=== PATIENT | female | born 2000 | race Caucasian/White ===

== ENCOUNTER 2021-04-19 17:21 | Emergency (ER) | payer MEDICAID, SELFPAY ==
--- NOTE | ~2021-04-19 | XR_ITS ---
EXAMINATION: XR ANKLE, LEFT CLINICAL INFORMATION: Fall COMPARISON: None TECHNIQUE: AP, lateral, and mortise views of the left ankle. FINDINGS: The bones and soft tissues are normal. No fracture. Alignment is anatomic. Joint spaces are maintained. No joint effusion. XR/XR ankle LT min 3V IMPRESSION: No fracture or dislocation.
[2021-04-19 17:53] VITALS: BP 120/63; PULSE 71; RESP 18; TEMP 37.2; O2SAT 100; BMI 35.6
--- NOTE | 2021-04-19 19:51 | ED_ITS ---
HPI - Extremity Injury (Lower) General Chief Complaint: Extremity Injury, Lower Stated Complaint: Fall @ work Time Seen by Provider: 04/19/21 19:49 Source: patient Mode of arrival: ambulatory Limitations: no limitations History of Present Illness HPI Narrative: This is a 21-year-old female who was at work when she is stepped off a curb that she had not noticed and twisted her left ankle. She is not sure exactly how twisted but she felt a pop and has pain in her lateral ankle. The patient is able to ambulate, with pain. Pain is moderately severe, achy. The patient denies any numbness or tingling in her foot or toes. Related Data Allergies Allergy/AdvReac Type Severity Reaction Status Date / Time No Known Allergies Allergy Unverified 02/15/20 19:37 [No Known Allergies*] Review of Systems Constitutional: Constitutional: Denies fever(s) Neurologic: Denies Sensory deficit (Neuro) [facility] Past Medical History Medical History (Updated 04/20/21 @ 00:02 by Wilfredo Majano) Anxiety Depressed Social History Social History Advance Directives: No Advance Directives Information Provided: No Physical Exam Vital Signs: Vital Signs: Last Vital Signs Temp 98.9 F 04/19/21 17:53 Pulse 71 04/19/21 17:53 Resp 18 04/19/21 17:53 BP 120/63 04/19/21 17:53 Pulse Ox 100 04/19/21 17:53 Body Mass Index 35.6 HENMT: Head: Yes normal to inspection Eyes: General: appearance normal, both eyes and all related structures Resp: Effort & Inspection: normal respiratory effort Auscultation: clear to auscultation bilaterally Cardio: Rate: regular rate Rhythm: regular rhythm Heart sounds: S1 normal heart sound present and S2 normal heart sound present Neuro: Sensory Exam: No Sensory deficit (Neuro) Extrem: Other: Left lateral ankle with mild swelling. Tenderness especially to the anterior talofibular ligament. No tenderness to the calcaneus or to the base of the 5th metatarsal. Foot is neurovascular intact. No tenderness the medial malleolus MDM - Extremity Injury (Lower) MDM Narrative Medical decision making narrative: Patient with a mechanism for ankle sprain, has tenderness localized to the lateral malleolus, mild swelling, no foot tenderness, x-ray negative. Recommend aircast or similar immobilization, limited weight-bearing, ibuprofen, ice pack Imaging Data Left ankle x-ray: Radiologist's impression: No acute pathology Discharge Plan Discharge Clinical Impression: Ankle sprain and strain Patient Disposition: Home, Self-Care Instructions: Ankle Sprain (ED), Cold Compress or Soak (ED) Additional Instructions: Use the splint while up and around for the next 5-7 days. Use ibuprofen for pain, 600 mg every 6 hours with food. Use an ice pack off and on for the next 24 hours. Follow-up with orthopedics if you still have significant pain in 5-7 days Referrals: Kyler Zuniga MD [Physician] - 1 week Stand Alone Forms: Work/School Release Interventions: ED Discharge Assessment Last Done: 04/19/21 20:50 Discharge Date/Time: 04/19/21 20:51
[2021-04-19] MEDS: Ibuprofen 600 MG TABLET PO (20:38)
== END 2021-04-19 20:51 | disposition home or self-care (01) ==
PROVIDERS: Emergency Provider Emergency Medicine
DX: S93.402A Sprain of unspecified ligament of left ankle, initial encounter (principal); S96.912A Strain of unspecified muscle and tendon at ankle and foot level, left foot, initial encounter; X50.1XXA Overexertion from prolonged static or awkward postures, initial encounter; Y93.01 Activity, walking, marching and hiking; Y92.89 Other specified places as the place of occurrence of the external cause; Y99.0 Civilian activity done for income or pay
CPT/HCPCS: 73610; 99283; 99284

== ENCOUNTER 2021-05-15 17:23 | Emergency (ER) | payer MEDICAID, SELFPAY ==
[2021-05-15 17:37] VITALS: BP 143/70; PULSE 81; RESP 20; TEMP 36.4; O2SAT 99; BMI 34.0
[2021-05-15 17:59] LABS: MANUAL DIFF FLAG NO
[2021-05-15 18:09] LABS: Basophils Absolute Auto 0.1 X10*3/uL (0.0-0.2); Basophils Percent Auto 0.5 % (0-2); Eosinophils Absolute Auto 0.2 X10*3/uL (0.0-0.4); Eosinophils Percent Auto 1.6 % (0-4); Hematocrit 40.7 % (37.0-47.0); Imm Gran Abs Auto 0.02 X10*3/uL (0.00-0.03); Imm Gran Pct Auto 0.2 % (0.0-0.4); Lymphocytes Percent Auto 21.5 % (20-40); Mean Corpuscular HGB Conc 31.9 g/dl (31.0-35.0); Mean Corpuscular Hemoglobin 26.6 pg (27.0-33.0); Mean Corpuscular Volume 83.4 fL (80.0-98.0); Mean Platelet Volume 10.2 fL (9.4-12.3); Monocytes Absolute Auto 0.7 X10*3/uL (0.1-1.2); Neutrophils Absolute Auto 6.5 x10*3/uL (2.0-8.3); Neutrophils Percent Auto 69.2 % (45-73); Platelet Count 246 X10*3/uL (160-400); Red Blood Count 4.88 X10*6/uL (4.20-5.50); Red Cell Distribution Width 12.9 % (11.0-16.0); White Blood Count 9.5 X10*3/uL (4.8-10.8)
[2021-05-15 18:15] LABS: Alanine Aminotransferase 22 U/L (0-31); Albumin Level 4.4 g/dL (3.5-5.0); Alkaline Phosphatase 58 U/L (39-117); Anion Gap 11 (12-20); Aspartate Amino Transferase 20 U/L (5-31); Bilirubin Total 0.3 mg/dL (0.0-1.0); Blood Urea Nitrogen 15 mg/dL (9-16); Calcium 9.5 mg/dL (8.4-10.2); Carbon Dioxide 28 mmol/L (22-29); Chloride 105 mmol/L (96-108); Creatinine Clr Calc Pharmacy 122.5; Estimated Glomerular Filt Rate > 60; Glucose Random 83 mg/dL (60-115); Potassium 4.6 mmol/L (3.3-5.1); Sodium 139 mmol/L (135-145); Total Protein 7.4 g/dL (6.5-8.0)
[2021-05-15 18:21] LABS: HCG Quantitative 153 mIU/mL
--- NOTE | 2021-05-15 23:00 | ED.FEMALEGU ---
HPI - Female Genitourinary General Chief complaint: Urogenital-Female Stated complaint: abd pain Time Seen by Provider: 05/15/21 22:41 Source: patient Mode of arrival: ambulatory Limitations: no limitations History of Present Illness HPI Narrative: 21-year-old female who presents emergency department for evaluation and bleeding. The patient states that Nexplanon implant removed on 04/02/2021. She states that prior to having the implant removed she had irregular menstrual periods. Her last menstrual period was 04/03/2021. The patient was expecting to have a menstrual period on 05/03/2021 but she has been approximately 12 days late. She states she took 3 home tests which were positive . She saw her PCP at [facility] and had a quantitative beta HCG of 131. She states that last night she developed cramping similar to a menstrual cramp. She states that the cramping is intermittent, mild to moderate intensity and located across her mid abdomen. She states that today she started to bleed similar to a menstrual period. She states that she used pads and she had to change her pad 3 times but did not soaked through these pads. She states that she was concerned about the amount of bleeding especially since she was therefore she came to the emergency department for evaluation. She denied fever, chills, lightheadedness, dizziness, nausea, vomiting, frequency, urgency or dysuria. The patient has never been . Related Data Allergies Allergy/AdvReac Type Severity Reaction Status Date / Time No Known Allergies Allergy Unverified 02/15/20 19:37 [No Known Allergies*] Review of Systems Review of Systems: Yes all other systems are reviewed and are negative [facility] Past Medical History [facility] Narrative: Past medical history: Arachnoid cyst, syncope. Past surgical history: None. Social history: She denies tobacco, alcohol and she occasionally uses marijuana. Medical History (Updated 05/15/21 @ 23:39 by Moises Arriaza MD) Anxiety Depressed Social History Social History Advance Directives: No Physical Exam Vital Signs: Vital Signs: Last Vital Signs Temp 97.6 F 05/15/21 17:37 Pulse 81 05/15/21 17:37 Resp 20 05/15/21 17:37 BP 143/70 H 05/15/21 17:37 Pulse Ox 99 05/15/21 17:37 BMI result Body Mass Index 34.0 Const: General: cooperative and no acute distress Orientation/consciousness: oriented to person and oriented to place Limitations: no limitations HENMT: Head: Yes normal to inspection, Yes normocephalic and Yes atraumatic Ears: external ears normal General nose exam: Normal external nose present Face and sinus: Yes normal facial exam Mouth: Normal oral and palatal mucosa present Throat: Yes posterior oropharynx normal Eyes: General: appearance normal, both eyes and all related structures Pupils: Equal, round and reactive pupils present Neck: Neck: Yes normal visual inspection, Yes no lymphadenopathy, Yes trachea midline and Yes supple Chest: Chest palpation & inspection: normal inspection of the chest and normal palpation of entire chest wall Resp: Effort & Inspection: normal respiratory effort and able to speak in complete sentences Auscultation: clear to auscultation bilaterally Cardio: Rate: regular rate Rhythm: regular rhythm Heart sounds: S1 normal heart sound present, S2 normal heart sound present and no murmurs GI: Inspection: Yes normal to inspection Palpation (GI): Soft to palpation, Tenderness to palpation present (GI) (Mild RLQ, suprapubic and LLQ tenderness) and no guarding Auscultation: normal bowel sounds : General: Yes no CVA tenderness Back/Spine/Pelvis: Back: no CVA tenderness Skin: General skin exam: no rashes or lesions noted Neuro: General: oriented to person and oriented to place Cranial nerves: Yes CN's II-XII intact bilaterally and Yes Equal, round and reactive pupils present Cognition (Neuro): normal cognition Motor exam (neuro): 5/5 motor strength present throughout Extrem: General: Yes normal to inspection Psych: Appearance: grossly normal Speech and movement: Normal speech and movement present Affect: normal affect Attitude: cooperative Thought process: Normal thought process present Thought content: Normal thought content present Course Course Course Narrative: 21-year-old nulliparous female patient who presents emergency department for evaluation abdominal pain vaginal bleeding and positive test. The patient used a Nexplanon implant for control and this was removed on 04/02/2021 and she had a menstrual period on 04/03/2021. She is approximately 12 days late for her next menstrual. She had 3 positive home test and had a quantitative beta-hCG of 131 done by her PCP today. The patient had menstrual cramping last night and had vaginal bleeding today which she states is similar to her menses and she has used 3 pads which is not soaked through. Initial vital signs were normal. Physical examination revealed lower abdominal tenderness which was mild. Laboratory evaluation revealed a normal CBC with a H&H of 13 and 40.7. Patient's comprehensive metabolic panel was normal. Quantitative beta-hCG was 153. I did discuss these results with the patient, possible that she may be early on in her or that she may have had a miscarriage. I did order and ABO on the patient to determine if she needs RhoGAM. At this time I do not think that she has and topic and I did discuss this with her. 2335: Patient's blood type is A positive. The patient will be discharged home with printed instructions on possible miscarriage. She was advised to follow-up with her OBGYN in 4-7 days for repeat quantitative beta-hCG and possible ultrasound as an outpatient. MDM - Female Genitourinary Lab Data Result diagrams: 05/15/21 17:54 05/15/21 17:54 Labs: Lab Results 05/15/21 05/15/21 05/15/21 Range/Units 17:54 17:54 17:54 WBC 9.5 (4.8-10.8) X10*3/uL RBC 4.88 (4.20-5.50) X10*6/uL Hgb 13.0 (12.0-16.0) g/dl Hct 40.7 (37.0-47.0) % MCV 83.4 (80.0-98.0) fL MCH 26.6 L (27.0-33.0) pg MCHC 31.9 (31.0-35.0) g/dl RDW 12.9 (11.0-16.0) % Plt Count 246 (160-400) X10*3/uL MPV 10.2 (9.4-12.3) fL Immature Gran % (Auto) 0.2 (0.0-0.4) % Neut % (Auto) 69.2 (45-73) % Lymph % (Auto) 21.5 (20-40) % [place] % (Auto) 7.0 (2-11) % Eos % (Auto) 1.6 (0-4) % Baso % (Auto) 0.5 (0-2) % Lymph # (Auto) 2.0 (1.2-4.9) X10*3/uL [place] # (Auto) 0.7 (0.1-1.2) X10*3/uL Eos # (Auto) 0.2 (0.0-0.4) X10*3/uL Baso # (Auto) 0.1 (0.0-0.2) X10*3/uL Abs Immat Gran (auto) 0.02 (0.00-0.03) X10*3/uL Absolute Neuts (auto) 6.5 (2.0-8.3) x10*3/uL Absolute Nucleated RBC 0.000 (0.0-0.012) X10*3/uL Nucleated RBC % (auto) 0.0 (0.0-0.2) /100WBC Sodium 139 (135-145) mmol/L Potassium 4.6 (3.3-5.1) mmol/L Chloride 105 (96-108) mmol/L Carbon Dioxide 28 (22-29) mmol/L Anion Gap 11 L (12-20) BUN 15 (9-16) mg/dL Creatinine 0.84 (0.5-1.4) mg/dL Estim Creat Clear Calc 122.5 Estimated GFR > 60 Random Glucose 83 (60-115) mg/dL Calcium 9.5 (8.4-10.2) mg/dL Total Bilirubin 0.3 (0.0-1.0) mg/dL AST 20 (5-31) U/L ALT 22 (0-31) U/L Alkaline Phosphatase 58 (39-117) U/L Total Protein 7.4 (6.5-8.0) g/dL Albumin 4.4 (3.5-5.0) g/dL Beta HCG, Quant 153 mIU/mL Blood Type A Positive Discharge Plan Discharge Clinical Impression: Bleeding in early Patient Disposition: Home, Self-Care Instructions: Threatened Miscarriage (ED) Additional Instructions: You had the following blood test: Complete blood count ( CBC) : WBC was 9.5, hemoglobin and hematocrit were 13 and 40.7, platelet count was 246. These were all normal. Comprehensive metabolic panel (CMP): Normal Quantitative beta-hCG (blood test) was 153. This would be low if your 6 weeks . This number usually doubles in 4-7 days if you are . You will need to follow-up with your OBGYN to get a repeat quantitative beta-hCG in 4-7 days and possibly an ultrasound as an outpatient. ABO (blood type): A positive. You do not need the special medicine RhoGAM. Please follow the threatened miscarriage instructions and return to the emergency department if you symptoms get worse or if you develop any new symptoms that are concerning to you.
[2021-05-15 23:54] VITALS: BP 101/73; PULSE 80; RESP 16; TEMP 36.9; O2SAT 100
--- NOTE | 2021-05-16 00:03 | PC.NURSE ---
pt a&o, no sob or chest pain, Reviewed labs and education on increase bleeding. Education on discharge instruction and follow up appointment.
== END 2021-05-16 00:05 | disposition home or self-care (01) ==
PROVIDERS: Emergency Provider Emergency Medicine Emergency Medical Services
DX: O20.9 Hemorrhage in early pregnancy, unspecified (principal); Z3A.01 Less than 8 weeks gestation of pregnancy
CPT/HCPCS: 36415; 80053; 84702; 85025; 86900; 86901; 99283; 99284

== ENCOUNTER 2021-05-22 09:50 | Outpatient (REF) | payer MEDICAID, SELFPAY ==
[2021-05-22 12:06] LABS: HCG Quantitative 12 mIU/mL
== END 2021-05-22 09:51 | disposition home or self-care (01) ==
LOC: HO.HMGCLDS 09:50
PROVIDERS: PCP Registered Nurse; Visit Provider Registered Nurse
DX: N91.2 Amenorrhea, unspecified (principal)
CPT/HCPCS: 36415; 84702

== ENCOUNTER 2021-06-05 11:03 | Outpatient (REF) | payer MEDICAID, SELFPAY ==
[2021-06-05 14:06] LABS: Hematocrit 42.5 % (37.0-47.0); Hemoglobin 13.5 g/dl (12.0-16.0); Mean Corpuscular HGB Conc 31.8 g/dl (31.0-35.0); Mean Corpuscular Hemoglobin 26.4 pg (27.0-33.0); Mean Platelet Volume 10.6 fL (9.4-12.3); Platelet Count 239 X10*3/uL (160-400); Red Blood Count 5.12 X10*6/uL (4.20-5.50); Red Cell Distribution Width 12.8 % (11.0-16.0); White Blood Count 7.4 X10*3/uL (4.8-10.8)
[2021-06-05 14:28] LABS: HCG Quantitative < 2 mIU/mL
== END 2021-06-05 11:04 | disposition home or self-care (01) ==
LOC: HO.HMGCLDS 11:03
PROVIDERS: PCP Registered Nurse; Visit Provider Registered Nurse
DX: N91.2 Amenorrhea, unspecified (principal)
CPT/HCPCS: 36415; 84702; 85027

== ENCOUNTER 2021-07-18 13:41 | Outpatient (REF) | payer MEDICAID, SELFPAY ==
[2021-07-18 17:06] LABS: HCG Quantitative 16960 mIU/mL
== END 2021-07-18 13:42 | disposition home or self-care (01) ==
LOC: HO.HMGCLDS 13:41
PROVIDERS: Visit Provider Registered Nurse
DX: N91.2 Amenorrhea, unspecified (principal)
CPT/HCPCS: 36415; 84702

== ENCOUNTER 2021-07-31 14:07 | Emergency (ER) | payer MEDICAID, SELFPAY ==
[2021-07-31 14:10] VITALS: BP 140/64; PULSE 93; RESP 18; TEMP 36.8; O2SAT 98; BMI 35.0
[2021-07-31 14:39] LABS: Appearance Urine HAZY; Color Urine YELLOW; Glucose Urine UA NEG (NEG); Leukocyte Esterase Urine NEG (NEG); Nitrite Urine NEG (NEG); Urine Blood NEG (NEG); Urine Ketones NEG (NEG); Urine Protein TRACE MG/DL (NEG-TRACE)
--- NOTE | 2021-07-31 16:01 | ED_ITS ---
HPI - Nausea/Vomiting/Diarrhea General Chief complaint: Nausea/Vomiting/Diarrhea Stated complaint: SEVERE NAUSEA 6 WK PREG Time Seen by Provider: 07/31/21 15:34 Source: patient Mode of arrival: ambulatory Limitations: no limitations History of Present Illness HPI Narrative: 21-year-old female , LMP 06/12/2021, 7 weeks by dates who presents emergency department for evaluation of constant nausea, intermittent vomiting, cough, constipation and weight loss. The patient states that she has had a telemedicine visit with an OBGYN and had a positive home test and confirmatory blood test . She states that over the past 1-2 weeks she has had constant nausea to the point where she is unable to eat. She states that she vomits once or twice a day. She states that she has lost approximately 10 lb over the past week. She denied fever, chills, chest pain, shortness of breath, dyspnea on exertion, abdominal pain, frequency, urgency, dysuria. She states that she developed a nonproductive cough today and several times which a cough this caused her to vomit. She states that she has been constipated but she did have a bowel movement yesterday. Her provider did start her on Zofran but this is not been helping with her nausea or vomiting. The patient states that she had a miscarriage in April of 2021 and was here at this emergency department. At that time her blood type was A positive. Patient has received the Moderna 3 shot vaccine for COVID-19. elicited complaint: nausea and vomiting Pertinent past history: other (Seven weeks by last menstrual period) Onset (ago): week(s) (2) Description of vomiting: food contents Associated nausea: Yes (Constant) Associated abdominal pain: No Exacerbating factors: eating Relieving factors: none Associated symptoms: cough (Nonproductive x1 day) Related Data Previous Rx's Medication Instructions Recorded metoclopramide HCl 10 mg tablet 10 mg PO Q6H PRN #20 tab 07/31/21 (Reglan) Allergies Allergy/AdvReac Type Severity Reaction Status Date / Time No Known Allergies Allergy Verified 07/31/21 14:10 [No Known Allergies*] Review of Systems Review of Systems: Yes all other systems are reviewed and are negative Gastrointestinal: Gastrointestinal: Reports nausea (Constant) PMFSH Past Medical History PMF Narrative: Past medical history: Anxiety, depression, asthma, arachnoid cyst, Chiari malformation. Past surgical history: None. Social history: She denies t obacco, alcohol and drug use. Medical History (Updated 07/31/21 @ 18:18 by Moises Arriaza MD) Anxiety Depressed Social History Social History Patient Tobacco Use Status: Never used Tobacco Use of substances other than those prescribed or required for medical reasons: No Advance Directives: No Advance Directives Information Provided: No Patient : Yes Physical Exam Vital Signs: Vital Signs: Last Vital Signs Temp 98.3 F 07/31/21 14:10 Pulse 92 07/31/21 16:47 Resp 14 07/31/21 16:47 BP 140/67 H 07/31/21 16:47 Pulse Ox 100 07/31/21 16:47 BMI result Body Mass Index 35.0 Const: General: cooperative and no acute distress Orientation/consciousness: oriented to person and oriented to place Limitations: no limitations HENMT: Head: Yes normal to inspection, Yes normocephalic and Yes atraumatic Ears: external ears normal General nose exam: Normal external nose present Face and sinus: Yes normal facial exam Mouth: Normal oral and palatal mucosa present Throat: Yes posterior oropharynx normal Eyes: General: appearance normal, both eyes and all related structures Pupils: Equal, round and reactive pupils present Neck: Neck: Yes normal visual inspection, Yes no lymphadenopathy, Yes trachea midline and Yes supple Chest: Chest palpation & inspection: normal inspection of the chest and normal palpation of entire chest wall Resp: Effort & Inspection: normal respiratory effort and able to speak in complete sentences Auscultation: clear to auscultation bilaterally Cardio: Rate: regular rate Rhythm: regular rhythm Heart sounds: S1 normal heart sound present, S2 normal heart sound present and no murmurs GI: Inspection: Yes normal to inspection Palpation (GI): Soft to palpation, nontender and no guarding Auscultation: normal bowel sounds : General: Yes no CVA tenderness Back/Spine/Pelvis: Back: no CVA tenderness Skin: General skin exam: no rashes or lesions noted Neuro: General: oriented to person and oriented to place Cranial nerves: Yes CN's II-XII intact bilaterally and Yes Equal, round and reactive pupils present Cognition (Neuro): normal cognition Motor exam (neuro): 5/5 motor strength present throughout Extrem: General: Yes normal to inspection Psych: Appearance: grossly normal Speech and movement: Normal speech and movement present Affect: normal affect Attitude: cooperative Thought process: Normal thought process present Thought content: Normal thought content present Course Course Course Narrative: 21-year-old female , 7 weeks based on LMP, positive home test and confirmatory test by PCP, who presents emergency department for evaluation of nausea times 1-2 weeks with lack of appetite, 1-2 episodes of vomiting per day, 10 lb weight loss and nonproductive cough which began today. The patient's vital signs revealed blood pressure of 140/64 otherwise were unremarkable. Physical examination was unremarkable with no abdominal tenderness. I ordered a CBC, CMP, lipase, urinalysis, quantitative beta-hCG. P atient will be tested for COVID-19. Patient was ordered to get normal saline x1 L, [id number] mg IV and Benadryl 50 mg IV. 1810: Laboratory evaluation: Patient's CBC, CMP were unremarkable except for an elevated alk-phos of 35. Patient's quantitative beta hCG today was 80,485, this was compared to a beta-hCG of 16,960 on 07/18/2021 which is reassuring. Urinalysis was negative. COVID-19 test was negative. Patient did get significant improvement with the above medications. She has almost completed her L of normal saline and she will be discharged after completion. Patient was started on regular and Benadryl every 6-8 hours as needed for nausea and vomiting. She was advised to follow-up with her OBGYN for re-evaluation and for further management of her symptoms. At this time, she is having no abdominal pain or tenderness I do not think that she needs an OB ultrasound and this could be obtained as an outpatient. MDM - Nausea/Vomiting/Diarrhea Lab Data Result diagrams: 07/31/21 16:38 07/31/21 16:38 Labs: Lab Results 07/31/21 07/31/21 07/31/21 Range/Units 14:33 16:38 16:38 WBC 9.3 (4.8-10.8) X10*3/uL RBC 5.21 (4.20-5.50) X10*6/uL Hgb 14.0 (12.0-16.0) g/dl Hct 42.8 (37.0-47.0) % MCV 82.1 (80.0-98.0) fL MCH 26.9 L (27.0-33.0) pg MCHC 32.7 (31.0-35.0) g/dl RDW 12.5 (11.0-16.0) % Plt Count 217 (160-400) X10*3/uL MPV 10.1 (9.4-12.3) fL Immature Gran % (Auto) 0.5 H (0.0-0.4) % Neut % (Auto) 84.8 H (45-73) % Lymph % (Auto) 4.8 L (20-40) % [place] % (Auto) 9.4 (2-11) % Eos % (Auto) 0.1 (0-4) % Baso % (Auto) 0.4 (0-2) % Lymph # (Auto) 0.5 L (1.2-4.9) X10*3/uL [place] # (Auto) 0.9 (0.1-1.2) X10*3/uL Eos # (Auto) 0.0 (0.0-0.4) X10*3/uL Baso # (Auto) 0.0 (0.0-0.2) X10*3/uL Abs Immat Gran (auto) 0.05 H (0.00-0.03) X10*3/uL Absolute Neuts (auto) 7.9 (2.0-8.3) x10*3/uL Absolute Nucleated RBC 0.000 (0.0-0.012) X10*3/uL Nucleated RBC % (auto) 0.0 (0.0-0.2) /100WBC Sodium 136 (135-145) mmol/L Potassium 4.6 (3.3-5.1) mmol/L Chloride 104 (96-108) mmol/L Carbon Dioxide 23 (22-29) mmol/L Anion Gap 14 (12-20) BUN 11 (9-16) mg/dL Creatinine 0.79 (0.5-1.4) mg/dL Estim Creat Clear Calc 123.1 Estimated GFR > 60 Random Glucose 78 (60-115) mg/dL Calcium 9.6 (8.4-10.2) mg/dL Total Bilirubin 0.5 (0.0-1.0) mg/dL AST 18 (5-31) U/L ALT 35 H (0-31) U/L Alkaline Phosphatase 56 (39-117) U/L Total Protein 7.4 (6.5-8.0) g/dL Albumin 4.3 (3.5-5.0) g/dL Lipase 15 (8-78) U/L Beta HCG, Quant 36043 mIU/mL Urine Color YELLOW Urine Appearance HAZY Urine pH 7.0 (5.0-8.0) Ur Specific [place] 1.010 (1.005-1.025) Urine Protein TRACE (NEG-TRACE) MG/DL Urine Glucose (UA) NEG (NEG) MG/DL Urine Ketones NEG (NEG) MG/DL Urine Blood NEG (NEG) Urine Nitrite NEG (NEG) Ur Leukocyte Esterase NEG (NEG) COVID-19 (TIARA) (Negative) COVID-19 Clin Com 07/31/21 Range/Units 16:38 WBC (4.8-10.8) X10*3/uL RBC (4.20-5.50) X10*6/uL Hgb (12.0-16.0) g/dl Hct (37.0-47.0) % MCV (80.0-98.0) fL MCH (27.0-33.0) pg MCHC (31.0-35.0) g/dl RDW (11.0-16.0) % Plt Count (160-400) X10*3/uL MPV (9.4-12.3) fL Immature Gran % (Auto) (0.0-0.4) % Neut % (Auto) (45-73) % Lymph % (Auto) (20-40) % [place] % (Auto) (2-11) % Eos % (Auto) (0-4) % Baso % (Auto) (0-2) % Lymph # (Auto) (1.2-4.9) X10*3/uL [place] # (Auto) (0.1-1.2) X10*3/uL Eos # (Auto) (0.0-0.4) X10*3/uL Baso # (Auto) (0.0-0.2) X10*3/uL Abs Immat Gran (auto) (0.00-0.03) X10*3/uL Absolute Neuts (auto) (2.0-8.3) x10*3/uL Absolute Nucleated RBC (0.0-0.012) X10*3/uL Nucleated RBC % (auto) (0.0-0.2) /100WBC Sodium (135-145) mmol/L Potassium (3.3-5.1) mmol/L Chloride (96-108) mmol/L Carbon Dioxide (22-29) mmol/L Anion Gap (12-20) BUN (9-16) mg/dL Creatinine (0.5-1.4) mg/dL Estim Creat Clear Calc Estimated GFR Random Glucose (60-115) mg/dL Calcium (8.4-10.2) mg/dL Total Bilirubin (0.0-1.0) mg/dL AST (5-31) U/L ALT (0-31) U/L Alkaline Phosphatase (39-117) U/L Total Protein (6.5-8.0) g/dL Albumin (3.5-5.0) g/dL Lipase (8-78) U/L Beta HCG, Quant mIU/mL Urine Color Urine Appearance Urine pH (5.0-8.0) Ur Specific [place] (1.005-1.025) Urine Protein (NEG-TRACE) MG/DL Urine Glucose (UA) (NEG) MG/DL Urine Ketones (NEG) MG/DL Urine Blood (NEG) Urine Nitrite (NEG) Ur Leukocyte Esterase (NEG) COVID-19 (TIARA) Negative (Negative) COVID-19 Clin Com See Note Discharge Plan Discharge Clinical Impression: Vomiting affecting , Acute dehydration Patient Disposition: Home, Self-Care Instructions: Nausea and Vomiting in (ED) Additional Instructions: Your laboratory evaluation today was normal. Your blood test (beta-hCG) on 07/18/2021 was 16,960. Today, the quantitative beta-hCG is 80,485 which is reassuring. Your blood type from your previous was A positive(A+). I am prescribing Reglan (metoclopramide) 10 mg pills. Take 1 pill every 6-8 ho urs as needed for nausea and vomiting. When you take Reglan take Benadryl 25 mg pills either 1 or 2 pills. Both of these medications are safe in . Follow-up with your OBGYN in 2 days. Please return to the emergency department if your symptoms get worse or if you develop any symptoms that are concerning to you. Prescriptions: New metoclopramide HCl [Reglan] 10 mg tablet 10 mg PO Q6H PRN (Reason: nausea and vomiting) Qty: 20 0RF
[2021-07-31 16:44] LABS: MANUAL DIFF FLAG NO
[2021-07-31] MEDS: 0.9 % Sodium Chloride 1,000 ML 999 ML IV (16:45)
[2021-07-31] MEDS: diphenhydrAMINE HCL 50 MG/ML VIAL IVPUSH (16:45)
[2021-07-31] MEDS: Metoclopramide HCl 10 MG/2 ML VIAL IVPUSH (16:46)
[2021-07-31 16:47] VITALS: BP 140/67; PULSE 92; RESP 14; O2SAT 100
[2021-07-31 16:47] LABS: Basophils Percent Auto 0.4 % (0-2); Eosinophils Percent Auto 0.1 % (0-4); Hematocrit 42.8 % (37.0-47.0); Imm Gran Abs Auto 0.05 X10*3/uL (0.00-0.03); Imm Gran Pct Auto 0.5 % (0.0-0.4); Lymphocytes Absolute Auto 0.5 X10*3/uL (1.2-4.9); Lymphocytes Percent Auto 4.8 % (20-40); Mean Corpuscular HGB Conc 32.7 g/dl (31.0-35.0); Mean Corpuscular Hemoglobin 26.9 pg (27.0-33.0); Mean Corpuscular Volume 82.1 fL (80.0-98.0); Mean Platelet Volume 10.1 fL (9.4-12.3); Monocytes Absolute Auto 0.9 X10*3/uL (0.1-1.2); Monocytes Percent Auto 9.4 % (2-11); Neutrophils Absolute Auto 7.9 x10*3/uL (2.0-8.3); Neutrophils Percent Auto 84.8 % (45-73); Platelet Count 217 X10*3/uL (160-400); Red Blood Count 5.21 X10*6/uL (4.20-5.50); Red Cell Distribution Width 12.5 % (11.0-16.0); White Blood Count 9.3 X10*3/uL (4.8-10.8)
[2021-07-31 17:00] LABS: COVID-19 Test Negative (Negative)
[2021-07-31 17:12] LABS: Alanine Aminotransferase 35 U/L (0-31); Albumin Level 4.3 g/dL (3.5-5.0); Alkaline Phosphatase 56 U/L (39-117); Anion Gap 14 (12-20); Aspartate Amino Transferase 18 U/L (5-31); Bilirubin Total 0.5 mg/dL (0.0-1.0); Blood Urea Nitrogen 11 mg/dL (9-16); Calcium 9.6 mg/dL (8.4-10.2); Carbon Dioxide 23 mmol/L (22-29); Chloride 104 mmol/L (96-108); Creatinine Clr Calc Pharmacy 123.1; Estimated Glomerular Filt Rate > 60; Glucose Random 78 mg/dL (60-115); Lipase 15 U/L (8-78); Potassium 4.6 mmol/L (3.3-5.1); Sodium 136 mmol/L (135-145); Total Protein 7.4 g/dL (6.5-8.0)
[2021-07-31 17:33] LABS: HCG Quantitative 80485 mIU/mL
== END 2021-07-31 18:28 | disposition home or self-care (01) ==
PROVIDERS: Emergency Provider Emergency Medicine Emergency Medical Services; PCP Registered Nurse
DX: O21.8 Other vomiting complicating pregnancy (principal); O26.891 Other specified pregnancy related conditions, first trimester; E86.0 Dehydration; Z3A.01 Less than 8 weeks gestation of pregnancy; Z20.822 Contact with and (suspected) exposure to COVID-19
CPT/HCPCS: 80053; 81003; 83690; 84702; 85025; 87635; 96361; 96374; 96375; 99284; J1200; J2765

== ENCOUNTER 2022-01-05 14:26 | Outpatient (REF) | payer MEDICAID, SELFPAY | END 2022-01-05 14:27 | disposition home or self-care (01) | LOC: HO.LAB 14:26 | PROVIDERS: Visit Provider Internal Medicine | DX: Z13.89 Encounter for screening for other disorder (principal) | CPT/HCPCS: 87635; C9803 ==

== ENCOUNTER 2022-12-10 06:08 | Emergency (ER) | payer OTHER, SELFPAY ==
--- NOTE | ~2022-12-10 | XR_ITS ---
EXAMINATION: XR WRIST, LEFT CLINICAL INFORMATION: Acute left wrist pain COMPARISON: None available. TECHNIQUE: Left wrist 4 views; PA, lateral, oblique and ulnar division views. FINDINGS: The bones and soft tissues are normal. No fracture. Alignment is anatomic with normal joint spaces. No erosions or abnormal soft tissue calcifications. Metallic ring is noted projecting over the fourth proximal phalanx. XR/XR wrist LT 2V IMPRESSION: Unremarkable left wrist radiographs.
[2022-12-10 06:37] VITALS: BP 128/62; PULSE 84; RESP 18; TEMP 36.6; O2SAT 100; BMI 35.4
--- NOTE | 2022-12-10 07:05 | ED.EXTPRO ---
HPI - Extremity Problem General Chief complaint: Extremity Injury, Upper Stated complaint: left wrist pain Time Seen by Provider: 12/10/22 07:05 Source: patient Mode of arrival: ambulatory Limitations: no limitations History of Present Illness HPI Narrative: 22 year old patient presents to the ED today with complaints of two weeks of left wrist pain. She states that she works at [employer] and does a lot of lifting throughout her shifts there. She denies any precipitating injury or fall onto the wrist. She indorses intermittent pain to the ulnar aspect of the left wrist which is accompanied by intermittent paresthesias of the 5th digit. She has some discomfort with resisted dorsiflexion but all other ROM is painless. She has been wearing a wrist split during work and states that it has help minimally. MD Complaint: joint pain Onset (ago): week(s) Pain Consistency: intermittent Location: left Severity scale (1-10): 1 Radiation: none Relieving factors: rest Exacerbating factors: range of motion (dorsiflexion) Associated symptoms: denies other symptoms Related Data Previous Rx's Medication Instructions Recorded metoclopramide HCl 10 mg tablet 10 mg PO Q6H PRN nausea and 07/31/21 (Reglan) vomiting #20 tabs Allergies Allergy/AdvReac Type Severity Reaction Status Date / Time No Known Allergies Allergy Verified 12/10/22 06:44 [No Known Allergies*] Review of Systems Constitutional: Constitutional: Reports no additional constitutional complaints, Denies chills, Denies fever(s) and Denies night sweats Eyes: Eyes: Reports no additional eye complaints, Denies blurry vision, Denies change in vision, Denies diplopia, Denies eye discharge, Denies loss of vision and Denies eye pain ENT: Denies dizziness Cardiovascular: Cardiovascular: Reports no additional cardiovascular complaints, Denies chest pain, Denies lightheadedness, Denies Loss of Consciousness and Denies dyspnea Respiratory: Respiratory: Reports no additional respiratory complaints and Denies dyspnea Gastrointestinal: Gastrointestinal: Reports no additional gastrointestinal complaints, Denies abdominal pain, Denies melena, Denies hematochezia, Denies change in bowel habits and Denies change in stool character Genitourinary: Genitourinary: Denies hematuria, Denies urinary frequency, Denies dysuria, Denies urinary incontinence, Denies urinary hesitancy and Denies urinary urgency Musculoskeletal: Musculoskeletal: Reports no additional musculoskeletal complaints, Reports arthralgias, Denies numbness and Denies tingling Neurologic: Denies dizziness, Denies loss of vision, Denies numbness and Denies tingling Psychiatric: Psychiatric: Reports no additional psychiatric complaints Endocrine: Endocrine: Reports no additional endocrine complaints Hematologic/Lymphatic: Hematologic/Lymphatic: Reports no additional hematologic/lymphatic complaints Allergic/Immunologic: Allergic/Immunologic: Reports no additional allergic/immunologic complaints PMFSH Past Medical History Attestation statement: The following information was validated with the patient. Source: old records reviewed and nursing notes reviewed Medical History Acne Anxiety Asthma, exercise induced Depressed Depression ARIANNA (generalized anxiety disorder) Heart murmur (09/18/20) Mood disorder Perineural cyst Pilonidal disease (07/02/20) Snoring (09/18/20) Umbilical discharge Vertigo (09/18/20) Social History Social History Alcohol intake: never Patient Tobacco Use Status: Never used Tobacco Smoked in Last 30 Days: No Use of substances other than those prescribed or required for medical reasons: No Advance Directives: No Physical Exam Vital Signs: Vital Signs: Last Vital Signs Temp 98.6 F 12/10/22 07:59 Pulse 78 12/10/22 07:59 Resp 16 12/10/22 07:59 BP 144/77 H 12/10/22 07:59 Pulse Ox 100 12/10/22 07:59 O2 Del Method Room Air 12/10/22 07:59 BMI result Body Mass Index 35.4 Const: General: cooperative, no acute distress, alert and awake Nutritional Appearance: well nourished Orientation/consciousness: patient oriented x3 Limitations: no limitations HEENT: Head: Yes normal to inspection and Yes atraumatic Ears: hearing grossly normal bilaterally and external ears normal General nose exam: Normal external nose present, no nasal discharge noted and no epistaxis Face and sinus: Yes normal facial exam, No abrasion and No laceration Mouth: Normal oral and palatal mucosa present, no drooling and no muffled voice Eyes: General: appearance normal, both eyes and all related structures Periorbital: periorbital findings normal Eyelids: Yes eyelids normal Conjunctivae: conjunctivae normal Pupils: Equal, round and reactive pupils present EOM: EOMs intact bilaterally Neck: Neck: Yes normal visual inspection, Yes full ROM and Yes no lymphadenopathy Chest: Chest palpation & inspection: normal inspection of the chest Resp: Effort & Inspection: normal respiratory effort and able to speak in complete sentences GI: Inspection: Yes normal to inspection Neuro: General: patient oriented x3 and moves all extremities Cranial nerves: Yes Equal, round and reactive pupils present Cognition (Neuro): normal cognition Motor exam (neuro): 5/5 motor strength present throughout Sensory Exam: Normal double simultaneous stimulation for sensation Coordination: [id number] test normal Extrem: General: Yes normal to inspection, Yes full ROM and Yes capillary refill normal Left upper extremity: normal to inspection, full ROM, no joint enlargement and wrist lateral Details: normal to inspection, normal ROM, Tinel's negative and Phalen's negative; no swelling and no deformity; no edema Psych: Appearance: grossly normal Mental Status: mental status grossly normal Affect: normal affect Attitude: cooperative Thought process: Normal thought process present Thought content: Normal thought content present Insight: Good insight present (Psych) Medical Decision Making Medical Decision Making MDM Narrative: Patient is a 22 year old assigned female at with a history of ARIANNA and depression presenting to the emergency department today with left wrist pain. Patient's physical exam was as noted in the physical exam portion of this chart. Patient's left wrist x-ray showed no acute process. I explained my physical exam findings as well as all test results to the patient. I answered all questions asked by the patient. I stressed the importance of the patient taking her medication as prescribed. I stressed the importance of the patient following up with her primary care provider and an orthopedic provider. I stressed the importance of the patient returning to the emergency department immediately if her symptoms were to worsen or if she were to develop any dizziness, shortness of breath, difficulty breathing, chest pain, blurry vision, loss of vision, nausea, vomiting, abdominal pain, fever, chills, back pain, or any other complaints. Patient verbalized agreement and understanding with this treatment plan and discharge. Differential Diagnosis Differential Diagnoses: The differential diagnosis associated with the presentation includes Wrist sprain Wrist strain Tendonitis Osteoarthritis Wrist pain Independent Interpretation I performed an independent interpretation of an: Plain X-Ray Interpretation: My interpretation is in agreement with the radiologist's impression of this imaging study. EXAMINATION: XR WRIST, LEFT CLINICAL INFORMATION: Acute left wrist pain? COMPARISON: None available.? TECHNIQUE: Left wrist 4 views; PA, lateral, oblique and ulnar division views. FINDINGS: The bones and soft tissues are normal. No fracture. Alignment is anatomic with normal joint spaces. No erosions or abnormal soft tissue calcifications. Metallic ring is noted projecting over the fourth proximal phalanx. XR/XR wrist LT 2V IMPRESSION: Unremarkable left wrist radiographs. Dictated By: Yasmin Gilmore MD Signed By: Electronically signed by Yasmin Gilmore MD 12/10/22 0755 Radiology Impression Discussion of test interpretation with radiology: I have reviewed the radiologist's reading. Prescription Management I considered prescription management with: Pain Medication (recommended patient use over the count pain medication.) Discharge Plan Discharge Clinical Impression: Sprain and strain of wrist Patient Disposition: Home, Self-Care Instructions: Wrist Sprain (ED) Additional Instructions: Continue using the brace you have been using. Follow up with your primary care provider and an orthopedic provider. Return to the emergency department immediately if your symptoms worsen or if you develop any dizziness, shortness of breath, difficulty breathing, chest pain, blurry vision, loss of vision, nausea, vomiting, abdominal pain, fever, chills, back pain, or any other complaints. Prescriptions: No Action metoclopramide HCl [Reglan] 10 mg tablet 10 mg PO Q6H PRN (Reason: nausea and vomiting) Qty: 20 0RF Referrals: [facility] [place] Family Medicine [Provider Group] (Call to establish and follow up with a primary care provider. If you already have a primary care provider, please follow up with them.) [facility] [place] Primary Elenita Gonzalez [Provider Group] (Call to establish and follow up with a primary care provider. If you already have a primary care provider, please follow up with them.) [facility] [place] Primary [facility] [Provider Group] (Call to establish and follow up with a primary care provider. If you already have a primary care provider, please follow up with them.) [facility] [place] Orthopedic Surgeons [Provider Group] (Call to establish and follow up with an orthopedic provider.) Stand Alone Forms: Work/School Release Interventions: ED Discharge Assessment Last Done: 12/10/22 08:09 Discharge Date/Time: 12/10/22 08:10 Print Language: Belarusian
--- OUTSIDE RECORDS SUMMARY | 2022-12-10 07:26 | XMS_ITS | Continuity of Care Document ---
Author Name Unknown Organization [facility] Address [address], [address], [address] [place] [id number]- Care Team Providers Care Tool Repairer Bench Name Role Phone Kaitlyn Jean NP Primary Care Physician [phone] Encounter [facility] Date(s): 11/11/20 - 12/11/20 [facility] [address], [address], [address] [place] [id number]- Allergies, Adverse Reactions, Alerts Substance Reaction Severity Status NKA Active Immunizations Given and Recorded Vaccine Date Status Refusal Reason SARS-CoV-2 (COVID-19) mRNA-1273 vaccine 10/09/20 R ecorded tetanus/diphtheria/pertussis, acel(Tdap) 1 09/18/20 Given tetanus/diphtheria/pertussis, acel(Tdap) 05/06/10 Recorded pneumococcal 23-valent vaccine 2 04/12/19 Given influenza virus vaccine, inactivated 3 03/17/19 Gi cody pneumococcal 13-valent vaccine 12/08/18 Recorded Poliovirus Vaccine, Inactivated 4 12/08/18 Recorde d Poliovirus Vaccine, Inactivated 01/07/04 Recorded Poliovirus Vaccine, Inactivated 07/21/00 Recorded Poliovirus Vaccine, Inactivated 99 Recorded Poliovirus Vaccine, Inactivated 99 Recorded Poliovirus Vaccine, Inactivated 99 Recorded Influenza Virus Vaccine (oldterm) 02/25/16 Recorde d Influenza Virus Vaccine (oldterm) 04/04/15 Recorde d Influenza Virus Vaccine (oldterm) 04/12/14 Recorde d Influenza Virus Vaccine (oldterm) 03/21/12 Recorde d Influenza Virus Vaccine (oldterm) 03/21/10 Recorde d Influenza Virus Vaccine (oldterm) 04/05/08 Recorde d Meningococcal Conjugate Vaccine 06/11/15 Recorded Meningococcal Conjugate Vaccine 01/18/12 Recorded Human Papillomavirus Vaccine 07/22/12 Recorded Human Papillomavirus Vaccine 03/21/12 Recorded Human Papillomavirus Vaccine 01/18/12 Recorded influ virus vac, H1N1, inactive(oldterm) 04/17/09 Recorded Varicella Virus Vaccine 03/30/07 Recorded Varicella Virus Vaccine 07/21/00 Recorded Measles/Mumps/Rubella Virus Vaccine 01/07/04 Recor ded Measles/Mumps/Rubella Virus Vaccine 07/21/00 Recor ded diphtheria/tetanus/pertussis, acel(DTaP) 01/07/04 Recorded diphtheria/tetanus/pertussis, acel(DTaP) 07/21/00 Recorded diphtheria/tetanus/pertussis, acel(DTaP) 99 Recorded diphtheria/tetanus/pertussis, acel(DTaP) 99 Recorded diphtheria/tetanus/pertussis, acel(DTaP) 99 Recorded Hepatitis B Vaccine (old term) 99 Recorded Hepatitis B Vaccine (old term) 99 Recorded Hepatitis B Vaccine (old term) 99 Recorded Haemophilus B Conj Vaccine (oldterm) 99 Scotty rded Haemophilus B Conj Vaccine (oldterm) 99 Scotty rded Haemophilus B Conj Vaccine (oldterm) 99 Scotty rded 1Result Comment: [facility]# [id number] 2Result Comment: [facility]-[id number] 3Result Comment: [id number] 4Result Comment: [03/17/19 Unchart] entered in error Medications Nexplanon 68 mg subcutaneous implant 1 each = 68 mg, Subcutaneous Infusion, Once, 0 Refills, Maintenance, 03/17/19 9:07:00 EDT Start Date: 03/17/19 Status: Ordered PARoxetine 10 mg oral tablet 10 mg, 1, tablet, By Mouth, Daily, # 14 tablet, Refills 0, Tot. Refills 0, Maintenance, 10/18/20 15:30:00 EDT, Route to Pharmacy Electronically, [id number], Partial fill upon patient request if the prescription is for a schedule II opioid d... Start Date: 10/18/20 Stop Date: 11/01/20 Status: Ordered ProAir HFA 90 mcg/inh inhalation aerosol with adapter 90 mcg, 1, puffs, Inhalation, Every 4 hours, PRN, # 1 each, Refills 3, Tot. Refills 3, Maintenance,07/30/20 9:34:00 EST, Inhaler, Route to Pharmacy Electronically, [id number], [id number], 165.2, cm, 07/02/20 14:16... Start Date: 07/30/20 Status: Ordered Problem List Condition Effective Dates Status Health Status Inform ant Acne(Confirmed) Active Depression(Confirmed) Active Asthma, exercise induced(Confirmed) Active ARIANNA (generalized anxiety disorder)(Confirmed) Active H/O constipation(Confirmed) Active Headache(Confirmed) Active History of syncope(Confirmed) Active Mood disorder(Confirmed) Active Obesity, Class I, BMI 30-34.9(Confirmed) Active Preventative health care(Confirmed) Active Perineural cyst(Confirmed) Active Umbilical discharge(Confirmed) Active Social History Social History Type Response Smoking Status Former smoker, quit more than 30 days ago; Smokeless tobacco use: vaping; Type: Cigarettes; Previous treatment: None; Started at age: 17; Stopped at age: 18; entered on: 03/17/19 Sex
--- OUTSIDE RECORDS SUMMARY | 2022-12-10 07:26 | XMS_ITS | Continuity of Care Document ---
Author Name Unknown Organization [facility] Address [address] [place] [address]- Care Team Providers Care Senior Accounting Clerk Name Role Phone Kaitlyn Jean NP Primary Care Physician Encounter [facility] Date(s): 10/21/20 - 11/20/20 [facility] [address] [place] [address]- Allergies, Adverse Reactions, Alerts Substance Reaction Severity Status NKA Active Immunizations Given and Recorded Vaccine Date Status Refusal Reason SARS-CoV-2 (COVID-19) mRNA-2292 vaccine 10/09/20 R ecorded tetanus/diphtheria/pertussis, acel(Tdap) 1 [...] Vaccine (oldterm) 99 Scotty rded 1Result Comment: [facility]# [id number] 2Result Comment: [facility]-[id number] 3Result Comment: [id number] 4Result Comment: [03/17/19 Unchart] entered in error Medications Nexplanon 68 mg subcutaneous implant 1 each = 68 mg, Subcutaneous Infusion, Once, 0 Refills, Maintenance, 03/17/19 9:07:00 EDT Start Date: 03/17/19 Status: Ordered PARoxetine 10 mg oral tablet 10 mg, 1, tablet, By Mouth, Daily, # 14 tablet, Refills 0, Tot. Refills 0, Maintenance, 10/18/20 15:30:00 EDT, Route to Pharmacy Electronically, [id number], Partial fill upon patient request if the prescription is for a schedule II opioid d... Start Date: 10/18/20 Stop Date: 11/01/20 Status: Ordered ProAir HFA 90 mcg/inh inhalation aerosol with adapter 90 mcg, 1, puffs, Inhalation, Every 4 hours, PRN, # 1 each, Refills 3, Tot. Refills 3, Maintenance,07/30/20 9:34:00 EST, Inhaler, Route to Pharmacy Electronically, [id number], [id number], 165.2, cm, 07/02/20 14:16... [...]
--- OUTSIDE RECORDS SUMMARY | 2022-12-10 07:26 | XMS_ITS | Continuity of Care Document ---
Author Name Unknown Organization [facility] Address [address] [place] [address]- Care Team Providers Care Business Transformation Manager Name Role Phone Kaitlyn Jean NP Primary Care Physician Encounter [facility] Date(s): 09/17/20 - 10/17/20 [facility] [address] [place] [address]- Allergies, Adverse Reactions, Alerts Substance Reaction Severity Status NKA Active Immunizations Given and Recorded Vaccine Date Status Refusal Reason tetanus/diphtheria/pertussis, acel(Tdap) 1 09/18/20 Given tetanus/diphtheria/pertussis, acel(Tdap) [...] Vaccine (oldterm) 99 Scotty rded 1Result Comment: [facility]# [id number] 2Result Comment: [facility]-[id number] 3Result Comment: [id number] 4Result Comment: [03/17/19 Unchart] entered in error Medications Lexapro 20 mg oral tablet 1 tablet = 20 mg, By Mouth, Daily, # 30 tablet, 0 Refills, Maintenance, 04/17/19 14:25:47 EST, Tablet Start Date: 04/17/19 Status: Ordered Nexplanon 68 mg subcutaneous implant 1 each = 68 mg, Subcutaneous Infusion, Once, 0 Refills, Maintenance, 03/17/19 9:07:00 EDT Start Date: 03/17/19 Status: Ordered ProAir HFA 90 mcg/inh inhalation aerosol with adapter 90 mcg, 1, puffs, Inhalation, Every 4 hours, PRN, # 1 each, Refills 3, Tot. Refills 3, Maintenance,07/30/20 9:34:00 EST, Inhaler, Route to Pharmacy Electronically, [id number], [id number], 165.2, cm, 07/02/20 14:16... Start Date: 07/30/20 Status: Ordered Problem List Condition Effective Dates Status Health Status Inform ant Acne(Confirmed) Active Depression(Confirmed) Active Asthma, exercise induced(Confirmed) Active ARIANNA (generalized anxiety disorder)(Confirmed) Active H/O constipation(Confirmed) Active Headache(Confirmed) Active History of syncope(Confirmed) Active Obesity, Class I, BMI 30-34.9(Confirmed) Active Preventative health care(Confirmed) Active Perineural cyst(Confirmed) Active Umbilical discharge(Confirmed) Active Social History Social History Type Response Smoking Status Former smoker, quit more than 30 days ago; Smokeless tobacco use: vaping; Type: Cigarettes; Previous treatment: None; Started at age: 17; Stopped at age: 18; entered on: 03/17/19 Sex
--- OUTSIDE RECORDS SUMMARY | 2022-12-10 07:26 | XMS_ITS | Continuity of Care Document ---
Author Name Unknown Organization [facility] Address [address] [place] [address] [address]uel, [address] [place] [address]- Care Team Providers Care Band Tier Name Role Phone Kaitlyn Jean NP Primary Care Physician Encounter [facility] Date(s): 11/21/19 - 12/21/19 [facility] [address] [place] [address], [address] [place] [address]- [facility] Attending Physician: AdmDinh dominguez Admitting Physician: Admtr, [id number] Referring Physician: Admtr, [id number] Allergies, Adverse Reactions, Alerts Substance Reaction Severity Status NKA Active Immunizations Given and Recorded Vaccine Date Status Refusal Reason pneumococcal 23-valent vaccine 1 04/12/19 Given influenza virus vaccine, inactivated 2 03/17/19 Gi cody pneumococcal 13-valent vaccine 12/08/18 Recorded Poliovirus Vaccine, Inactivated 3 12/08/18 Recorde d Poliovirus Vaccine, Inactivated 01/07/04 [...] 03/21/12 Recorded Human Papillomavirus Vaccine 01/18/12 Recorded tetanus/diphtheria/pertussis, acel(Tdap) 05/06/10 Recorded influ virus vac, H1N1, inactive(oldterm) 04/17/09 [...] Vaccine (oldterm) 99 Scotty rded 1Result Comment: [facility]-[id number] 2Result Comment: [id number] 3Result Comment: [03/17/19 Unchart] entered in error Medications Lexapro 20 mg oral tablet 1 tablet = 20 mg, By Mouth, Daily, # 30 tablet, 0 Refills, Maintenance, 04/17/19 14:25:47 EST, Tablet Start Date: 04/17/19 Status: Ordered mupirocin 2% topical cream 1 application, Topically, 3 times a day, # 15 Gm, 1 Refills, Acute 01/03/20 8:29:00 EDT, 12/20/19 8:29:00 EDT, Cream, [id number], 1 application Topically 3 times a day, 165.2, cm, :58:00 EDT, Height Start Date: 12/20/19 Stop Date: 01/03/20 Status: Ordered Nexplanon 68 mg subcutaneous implant 1 each = 68 mg, Subcutaneous Infusion, Once, 0 Refills, Maintenance, 03/17/19 9:07:00 EDT Start Date: 03/17/19 Status: Ordered ProAir HFA 90 mcg/inh inhalation aerosol with adapter 1, puffs, Inhalation, Every 4 hours, PRN, # 8.5 Gm, Refills 0, Maintenance, 03/17/19 9:06:24 EDT, Aerosol Start Date: 03/17/19 Status: Ordered Problem List Condition Effective Dates [...]
--- OUTSIDE RECORDS SUMMARY | 2022-12-10 07:26 | XMS_ITS | Continuity of Care Document ---
Author Name Unknown Organization [facility] Address [address] [place] [id number]- Care Team Providers Care Manager Medical Affairs Name Role Phone Bhavesh BAEZ, Radha Wallace Primary Care Physician [facility]counter [facility] Date(s): 06/02/19 - 06/12/19 [facility] [address] [place] [id number]- [facility] Attending Physician: Dinh Osorio Admitting Physician: Dinh Osorio Referring Physician: AdmtrDinh Allergies, Adverse Reactions, Alerts Substance Reaction Severity [...] Vaccine (oldterm) 99 Scotty rded 1Result Comment: [facility]-[id number] 2Result Comment: [id number] 3Result Comment: [03/17/19 Unchart] entered in error Medications clindamycin 1% topical lotion 1 application, Topically, 2 times a day, # 60 mL, 1 Refills, Maintenance, 06/01/19 9:19:00 EST, Lotion, [facility], 1 application Topically 2 times a day, 165.2, cm, 06/01/19 9:03:00 EST, Height Start Date: 06/01/19 Status: Ordered escitalopram 20 mg oral tablet 1 tablet = 20 mg, By Mouth, Daily, # 30 tablet, 1 Refills, Maintenance, 04/12/19 10:57:26 EST, Tablet Start Date: 04/12/19 Stop Date: 06/11/19 Status: Ordered Lexapro 20 mg oral tablet 1 tablet = 20 mg, By Mouth, Daily, # 30 tablet, 0 Refills, Maintenance, 04/17/19 14:25:47 EST, Tablet Start Date: 04/17/19 Status: Ordered Nexplanon 68 mg subcutaneous implant 1 each = 68 mg, Subcutaneous Infusion, Once, 0 Refills, Maintenance, 03/17/19 9:07:00 EDT Start Date: 03/17/19 Status: Ordered OXcarbazepine 150 mg oral tablet TAKE ONE TABLET BY MOUTH TWICE A DAY Start Date: 06/01/19 Status: Ordered ProAir HFA 90 mcg/inh inhalation [...] BMI 30-34.9(Confirmed) Active Preventative health care(Confirmed) Active Social History Social History Type Response Smoking Status Former smoker, quit more than 30 days ago; Smokeless tobacco use: vaping; Type: Cigarettes; Previous treatment: None; Started at age: 17; Stopped at age: 18; entered on: 03/17/19 Sex
--- OUTSIDE RECORDS SUMMARY | 2022-12-10 07:26 | XMS_ITS | Continuity of Care Document ---
Author Name Unknown Organization [facility] Ort[facility] Address [address] [place] [address]- Care Team Providers Care Powder Guard Name Role Phone Kaitlyn Jean NP Primary Care Physician Encounter [facility] [place] Date(s): 10/14/20 - 11/13/20 [facility] Adult [address] [place] [address]- Allergies, Adverse Reactions, Alerts Substance Reaction Severity Status NKA Active Immunizations Given and Recorded Vaccine Date Status Refusal Reason SARS-CoV-2 (COVID-19) mRNA-4853 vaccine 10/09/20 R ecorded tetanus/diphtheria/pertussis, acel(Tdap) 1 [...] Scotty rded 1Result Comment: [facility]# [id number] 2Result Comment: [facility]-[id number] 3Result Comment: [id number] 4Result Comment: [03/17/19 Unchart] entered in error Medications Nexplanon 68 mg subcutaneous implant 1 each = 68 mg, Subcutaneous Infusion, Once, 0 Refills, Maintenance, 03/17/19 9:07:00 EDT Start Date: 03/17/19 Status: Ordered PARoxetine 10 mg oral tablet 10 mg, 1, tablet, By Mouth, Daily, # 14 tablet, Refills 0, Tot. Refills 0, Maintenance, 10/18/20 15:30:00 EDT, Route to Pharmacy Electronically, [facility], Partial fill upon patient request if the prescription is for a schedule II opioid d... Start Date: 10/18/20 Stop Date: 11/01/20 Status: Ordered ProAir HFA 90 mcg/inh inhalation aerosol with adapter 90 mcg, 1, puffs, Inhalation, Every 4 hours, PRN, # 1 each, Refills 3, Tot. Refills 3, Maintenance,07/30/20 9:34:00 EST, Inhaler, Route to Pharmacy Electronically, [id number], [facility], 165.2, cm, 07/02/20 14:16... [...]
--- OUTSIDE RECORDS SUMMARY | 2022-12-10 07:26 | XMS_ITS | Continuity of Care Document ---
Author Name Unknown Organization [facility] Ortiz lt Address [address] [place] [address]- Care Team Providers Care Ornamental Ironworking Supervisor Name Role Phone Bhavesh BAEZ, Radha Wallaec Primary Care Physician [facility]counter [facility] Date(s): 08/03/19 - 08/13/19 [facility] Adult [address] [place] [address]- [facility] Attending Physician: Dinh Osorio Admitting Physician: AdmDinh dominguez Referring Physician: AdmtrDinh Allergies, Adverse Reactions, Alerts [...] Papillomavirus Vaccine 07/22/12 Recorded Human Papillomavirus Vaccine 10/22/12 Recorded Human Papillomavirus Vaccine 01/18/12 Recorded tetanus/diphtheria/pertussis, [...] Vaccine (oldterm) 99 Scotty rded 1Result Comment: [facility]-[id number] 2Result Comment: [id number] 3Result Comment: [03/17/19 Unchart] entered in error [...] Preventative health care(Confirmed) Active Perineural cyst(Confirmed) Active Social History Social History Type Response Smoking Status Former smoker, quit more than 30 days ago; Smokeless tobacco use: vaping; Type: Cigarettes; Previous treatment: None; Started at age: 17; Stopped at age: 18; entered on: 03/17/19 Sex
--- OUTSIDE RECORDS SUMMARY | 2022-12-10 07:26 | XMS_ITS | Continuity of Care Document ---
Author Name Unknown Organization [facility] Ortiz Address [address] [place] [address]- Care Team Providers Care Drafting Layout Worker Name Role Phone Bhavesh BAEZ, Radha Wallace Primary Care Physician [place] [facility] [place]): [place]16[place] 10/23/19 [facility] Adult [address] [place] [address]- [facility] Encounter Diagnosis Headache(Discharge Diagnosis) - 10/16/19 Attending Physician: Kaitlyn Jean NP Referring Physician: Veto Granger MD Allergies, Adverse Reactions, Alerts Substance Reaction Severity [...] (oldterm) 99 Scotty rded 1Result Comment: [facility]-[id number] 2Result Comment: [id number] 3Result Comment: [03/17/19 Unchart] entered in error [...] Preventative health care(Confirmed) Active Perineural cyst(Confirmed) Active Diagnosis Diagnosis Type Effective Dates Health Status Clini luis Service Informant Headache Discharge Diagnosis 10/16/19 Vital Signs Most recent to oldest [Reference Range]: 1 Height 165.2 cm (10/16/19 9:29 AM) Social History Social History Type Response Smoking Status Former smoker, quit more than 30 days ago; Smokeless tobacco use: vaping; Type: Cigarettes; Previous treatment: None; Started at age: 17; Stopped at age: 18; entered on: 03/17/19 Sex
--- OUTSIDE RECORDS SUMMARY | 2022-12-10 07:26 | XMS_ITS | Continuity of Care Document ---
Author Name Unknown Organization [facility] Ortiz lt Address [address] [place] [address]- Care Team Providers Care Edger Runner Name Role Phone aKitlyn Jean NP Primary Care Physician [phone] Encounter [facility] [place] Date(s): 10/15/20 - 11/14/20 [facility] Adult [address] [place] [address]- Allergies, Adverse Reactions, Alerts Substance Reaction Severity Status NKA Active Immunizations Given and Recorded Vaccine Date Status Refusal Reason SARS-CoV-2 (COVID-19) mRNA-6973 vaccine 10/09/20 R ecorded tetanus/diphtheria/pertussis, acel(Tdap) 1 [...] Vaccine (oldterm) 99 Scotty rded 1Result Comment: [facility]# [id number] 2Result Comment: [facility]-[id number] 3Result Comment: [id number] 4Result Comment: [03/17/19 Unchart] entered in error Medications Nexplanon 68 mg subcutaneous implant 1 each = 68 mg, Subcutaneous Infusion, Once, 0 Refills, Maintenance, 03/17/19 9:07:00 EDT Start Date: 03/17/19 Status: Ordered PARoxetine 10 mg oral tablet 10 mg, 1, tablet, By Mouth, Daily, # 14 tablet, Refills 0, Tot. Refills 0, Maintenance, 10/18/20 15:30:00 EDT, Route to Pharmacy Electronically, [facility], Partial fill upon patient request if the prescription is for a schedule II opioid d... Start Date: 10/18/20 Stop Date: 11/01/20 Status: Ordered ProAir HFA 90 mcg/inh inhalation aerosol with adapter 90 mcg, 1, puffs, Inhalation, Every 4 hours, PRN, # 1 each, Refills 3, Tot. Refills 3, Maintenance,07/30/20 9:34:00 EST, Inhaler, Route to Pharmacy Electronically, [id number], [facility], 165.2, cm, 07/02/20 14:16... Start [...]
--- OUTSIDE RECORDS SUMMARY | 2022-12-10 07:26 | XMS_ITS | Continuity of Care Document ---
Author Name Unknown Organization [facility] Address [address] [place], [place] [address]nila baker, [address] [place] [address]- Care Team Providers Care Sewer Hand Name Role Phone Kaitlyn Jean NP Primary Care Physician Encounter [facility] Date(s): 11/11/20 - 11/18/20 [facility] [address] [place] [address] Drive, [address] [place], [place] [address] Attending Physician: Not on Staff, Attending MD Allergies, Adverse Reactions, Alerts Substance Reaction Severity Status NKA Active Immunizations Given and Recorded Vaccine Date Status Refusal Reason SARS-CoV-2 (COVID-19) mRNA-6459 vaccine 10/09/20 R ecorded tetanus/diphtheria/pertussis, acel(Tdap) 1 [...] Vaccine (oldterm) 99 Scotty rded 1Result Comment: [facility]# [id number] 2Result Comment: [facility]-[id number] 3Result Comment: [id number] 4Result Comment: [03/17/19 Unchart] entered in error Medications Nexplanon 68 mg subcutaneous implant 1 each = 68 mg, Subcutaneous Infusion, Once, 0 Refills, Maintenance, 03/17/19 9:07:00 EDT Start Date: 03/17/19 Status: Ordered PARoxetine 10 mg oral tablet 10 mg, 1, tablet, By Mouth, Daily, # 14 tablet, Refills 0, Tot. Refills 0, Maintenance, 10/18/20 15:30:00 EDT, Route to Pharmacy Electronically, [facility], Partial fill upon patient request if the prescription is for a schedule II opioid d... Start Date: 10/18/20 Stop Date: 11/01/20 Status: Ordered ProAir HFA 90 mcg/inh inhalation aerosol with adapter 90 mcg, 1, puffs, Inhalation, Every 4 hours, PRN, # 1 each, Refills 3, Tot. Refills 3, Maintenance,07/30/20 9:34:00 EST, Inhaler, Route to Pharmacy Electronically, [id number], [facility], 165.2, cm, 07/02/20 [...]
--- OUTSIDE RECORDS SUMMARY | 2022-12-10 07:26 | XMS_ITS | Continuity of Care Document ---
Author Name Unknown Organization [facility] Address [address] [address]- Care Team Providers Care Snow Shoveler Name Role Phone Damien BAEZ, Beatris Olson Primary Care Physician Encounter [facility] Date(s): 01/08/22 - 02/07/22 [facility] [address] [place] [address]- Attending Physician: Dinh Osorio Admitting Physician: Dinh Osorio Referring Physician: AdmtrDinh Allergies, Adverse Reactions, Alerts No Known Allergies Immunizations Given and Recorded Vaccine Date Status Refusal Reason SARS-CoV-2 (COVID-19) mRNA-1270 vaccine 10/09/20 R ecorded tetanus/diphtheria/pertussis, acel(Tdap) 1 [...] (oldterm) 99 Scotty rded 1Result Comment: [facility]# [id number] 2Result Comment: [facility]-[id number] 3Result Comment: [id number] 4Result Comment: [03/17/19 Unchart] entered in error Medications Freestyle Lite Lancets See Instructions, # 1 pack/packet, Refills 3, Tot. Refills 3, Maintenance, To test blood sugar 4 x day. 1 packet =100 lancets, 01/01/22 12:37:00 EDT, Compound, 165.2, cm, 02/13/21 12:46:00 EDT, Height, 91.7, kg, 08/05/21 16:53:00 EST, Dry Weight Start Date: 01/01/22 Status: Ordered Freestyle Lite Monitor See Instructions, # 1 kit, Maintenance, To test BS 4 x day., 01/01/22 12:37:00 EDT, Compound, 165.2, cm, 02/13/21 12:46:00 EDT, Height, 91.7, kg, 08/05/21 16:53:00 EST, Dry Weight Start Date: 01/01/22 Status: Ordered Freestyle Lite Test Strips See Instructions, # 1 pack/packet, Refills 3, Tot. Refills 3, Maintenance, To test blood sugar 4 x day. 1 Bottle= 100 test strips, 01/01/22 12:37:00 EDT, Compound, 165.2, cm, 02/13/21 12:46:00 EDT, Height, 91.7, kg, 08/05/21 16:53:00 EST, Dry Weight Start Date: 01/01/22 Status: Ordered Nexplanon 68 mg subcutaneous implant 1 each = 68 mg, Subcutaneous Infusion, Once, 0 Refills, Maintenance, 03/17/19 9:07:00 EDT Start Date: 03/17/19 Status: Ordered PARoxetine 10 mg oral tablet 10 mg, 1, tablet, By Mouth, Daily, # 14 tablet, Refills 0, Tot. Refills 0, Maintenance, 10/18/20 15:30:00 EDT, Route to Pharmacy Electronically, [facility], Partial fill upon patient request if the prescription is for a schedule II opioid d... Start Date: 10/18/20 Stop Date: 11/01/20 Status: Ordered ProAir HFA 90 mcg/inh inhalation aerosol with adapter 90 mcg, 1, puffs, Inhalation, Every 4 hours, PRN, # 1 each, Refills 3, Tot. Refills 3, Maintenance,07/30/20 9:34:00 EST, Inhaler, Route to Pharmacy Electronically, [id number], [facility], 165.2, cm, 07/02/20 14:16... Start Date: 07/30/20 Status: Ordered verapamil 40 mg oral tablet 1 tablet = 40 mg, By Mouth, Daily at bedtime, # 30 tablet, 5 Refills, Maintenance, 02/13/21 13:45:00 EDT, [id number], Partial fill upon patient request if the prescription is for a schedule II opioid drug., 165.2, cm, 02/13/21 12:46:0... Start Date: 02/13/21 Stop Date: 08/12/21 Status: Ordered Problem List Condition Effective Dates [...] at age: 18; entered on: 03/17/19 Sex Care Team Personnel Name: Damien BAEZ, Beatris Olson Address: [address] [place] [address]
--- OUTSIDE RECORDS SUMMARY | 2022-12-10 07:26 | XMS_ITS | Continuity of Care Document ---
Author Name Unknown Organization [facility] Address [address] [place] [address]- Care Team Providers Care Chimney Construction Supervisor Name Role Phone Damien BAEZ, Beatris Olson Primary Care Physician [facility]counter [facility] Date(s): 03/02/22 - 04/01/22 [facility] [address] [place] [address] Allergies, Adverse Reactions, Alerts No Known Allergies [...] Vaccine (oldterm) 99 Scotty rded 1Result Comment: [facility]# [id number] 2Result Comment: [facility]-[id number] 3Result Comment: [id number] 4Result Comment: [03/17/19 Unchart] entered in error Medications aspirin 81 mg oral capsule See Instructions, daily, 0 Refills, Maintenance, 03/19/22 20:42:00 EDT, Partial fill upon patient request if the prescription is for a schedule II opioid drug. Start Date: 03/19/22 Status: Ordered Multivitamin Tablet Daily, 0 Refills, Maintenance, 03/19/22 20:43:00 EDT, Partial fill upon patient request if the prescription is for a schedule II opioid drug. Start Date: 03/19/22 Status: Ordered ProAir HFA 90 mcg/inh inhalation aerosol with adapter 90 mcg, 1, puffs, Inhalation, Every 4 hours, PRN, # 1 each, Refills 3, Tot. Refills 3, Maintenance,07/30/20 9:34:00 EST, Inhaler, Route to Pharmacy Electronically, [id number], 165.2, cm, 07/02/20 14:16... Start Date: 07/30/20 Status: Ordered Problem List Condition Confirmation Course Effective Dates Status Health St atus Informant Acne Confirmed Active Depression Confirmed Active Asthma, exercise induced Confirmed Active ARIANNA (generalized anxiety disorder) Confirmed Active H/O constipation Confirmed Active Headache Confirmed Active History of syncope Confirmed Active Mood disorder Confirmed Active Obese class II Confirmed Active Preventative health care Confirmed Active Perineural cyst Confirmed Active Umbilical discharge Confirmed Active Social History Social History Type Response Smoking Status Former smoker, quit more than 30 days ago; Smokeless tobacco use: vaping; Type: Cigarettes; Previous treatment: None; Started at age: 17; Stopped at age: 18; entered on: 03/17/19 Sex Patient Care team information Personnel Name: Beatris Quezada NP Address: Address: [address] [place] [address]
--- OUTSIDE RECORDS SUMMARY | 2022-12-10 07:26 | XMS_ITS | Continuity of Care Document ---
Author Name Unknown Organization [facility] Address [address] [place] [address]- Care Team Providers Care Dye Reel Operator Helper Name Role Phone Damien BAEZ, Beatris Olson Primary Care Physician [facility]counter [facility] Date(s): 11/10/21 - 12/10/21 [facility] [address] [place] [id number] Allergies, Adverse Reactions, Alerts No Known Allergies Immunizations Given and Recorded Vaccine Date Status Refusal Reason SARS-CoV-2 (COVID-19) mRNA-0726 vaccine 10/09/20 R ecorded tetanus/diphtheria/pertussis, acel(Tdap) 1 [...] Vaccine (oldterm) 99 Scotty rded 1Result Comment: [facility]# [id number] 2Result Comment: [facility]-[id number] 3Result Comment: [id number] 4Result Comment: [03/17/19 Unchart] entered in error Medications Nexplanon 68 mg subcutaneous implant 1 each = 68 mg, Subcutaneous Infusion, Once, 0 Refills, Maintenance, 03/17/19 9:07:00 EDT Start Date: 03/17/19 Status: Ordered PARoxetine 10 mg oral tablet 10 mg, 1, tablet, By Mouth, Daily, # 14 tablet, Refills 0, Tot. Refills 0, Maintenance, 10/18/20 15:30:00 EDT, Route to Pharmacy Electronically, [facility], Partial fill upon patient request if the prescription is for a schedule II opioid d... Start Date: 10/18/20 Stop Date: 11/01/20 Status: Ordered ProAir HFA 90 mcg/inh inhalation aerosol with adapter 90 mcg, 1, puffs, Inhalation, Every 4 hours, PRN, # 1 each, Refills 3, Tot. Refills 3, Maintenance,07/30/20 9:34:00 EST, Inhaler, Route to Pharmacy Electronically, [id number], [facility], 165.2, cm, 07/02/20 14:16... Start Date: 07/30/20 Status: Ordered verapamil 40 mg oral tablet 1 tablet = 40 mg, By Mouth, Daily at bedtime, # 30 tablet, 5 Refills, Maintenance, 02/13/21 13:45:00 EDT, [facility] #[id number], Partial fill upon patient request if the [...]
--- OUTSIDE RECORDS SUMMARY | 2022-12-10 07:26 | XMS_ITS | Continuity of Care Document ---
Author Name Unknown Organization [facility] Address Unknown Care Team Providers Care Commercial Property Manager Name Role Phone Damien BAEZ, Beatris Olson Primary Care Physician [facility]counter [facility] Date(s): 11/07/21 - 12/07/21 [facility] Allergies, Adverse Reactions, Alerts No Known Allergies [...] rded 1Result Comment: [facility]# [id number] 2Result Comment: [facility]-[id number] 3Result Comment: [id number] 4Result Comment: [03/17/19 Unchart] entered in error Medications Nexplanon 68 mg subcutaneous implant 1 each = 68 mg, Subcutaneous Infusion, Once, 0 Refills, Maintenance, 03/17/19 9:07:00 EDT Start Date: 03/17/19 Status: Ordered PARoxetine 10 mg oral tablet 10 mg, 1, tablet, By Mouth, Daily, # 14 tablet, Refills 0, Tot. Refills 0, Maintenance, 10/18/20 15:30:00 EDT, Route to Pharmacy Electronically, [facility], Partial fill upon patient request if the prescription is for a schedule II opioid d... Start Date: 10/18/20 Stop Date: 11/01/20 Status: Ordered ProAir HFA 90 mcg/inh inhalation aerosol with adapter 90 mcg, 1, puffs, Inhalation, Every 4 hours, PRN, # 1 each, Refills 3, Tot. Refills 3, Maintenance,07/30/20 9:34:00 EST, Inhaler, Route to Pharmacy Electronically, [id number], [facility], 165.2, cm, 07/02/20 14:16... Start Date: 07/30/20 Status: Ordered verapamil 40 mg oral tablet 1 tablet = 40 mg, By Mouth, Daily at bedtime, # 30 tablet, 5 Refills, Maintenance, 02/13/21 13:45:00 EDT, [facility] #[id number], Partial fill upon patient request if the [...]
--- OUTSIDE RECORDS SUMMARY | 2022-12-10 07:26 | XMS_ITS | Continuity of Care Document ---
Author Name Unknown Organization [facility] Address [address] [place] [address]- Care Team Providers Care Bottle Caser Name Role Phone Kaitlyn Jean NP Primary Care Physician Encounter [facility] [place] Date(s): 09/18/20 - 09/25/20 [facility] Adult [address] [place] [address]- Encounter Diagnosis Well adult exam(Discharge Diagnosis) - 09/18/20 Asthma, exercise induced(Discharge Diagnosis) - 09/18/20 Depression(Discharge Diagnosis) - 09/18/20 ARIANNA (generalized anxiety disorder)(Discharge Diagnosis) - 09/18/20 Obesity, Class I, BMI 30-34.9(Discharge Diagnosis) - 09/18/20 Headache(Discharge Diagnosis) - 09/18/20 History of syncope(Discharge Diagnosis) - 09/18/20 Snoring(Discharge Diagnosis) - 09/18/20 Heart murmur(Discharge Diagnosis) - 09/18/20 Vertigo(Discharge Diagnosis) - 09/18/20 Costochondritis(Discharge Diagnosis) - 09/18/20 Attending Physician: Not on Staff, Attending MD Referring Physician: Kaitlyn Jean NP Allergies, Adverse Reactions, Alerts Substance Reaction Severity [...] Vaccine (oldterm) 99 Scotty rded 1Result Comment: [facility]# [id number] 2Result Comment: [facility]-[id number] 3Result Comment: [id number] 4Result Comment: [03/17/19 Unchart] entered in error [...] 9:34:00 EST, Inhaler, Route to Pharmacy Electronically, [id number], [facility], 165.2, cm, 07/02/20 14:16... Start Date: 07/30/20 Status: Ordered Problem List Condition Effective Dates Status Health Status Inform ant Acne(Confirmed) Active Depression(Confirmed) Active Asthma, exercise induced(Confirmed) Active ARIANNA (generalized anxiety disorder)(Confirmed) Active H/O constipation(Confirmed) Active Headache(Confirmed) Active History of syncope(Confirmed) Active Obesity, Class I, BMI 30-34.9(Confirmed) Active Preventative health care(Confirmed) Active Perineural cyst(Confirmed) Active Umbilical discharge(Confirmed) Active Diagnosis Diagnosis Type Effective Dates Health Status Clinical Service Informant Well adult exam Discharge Diagnosis 09/18/20 Asthma, exercise induced Discharge Diagnosis 09/18/20 Depression Discharge Diagnosis 09/18/20 ARIANNA (generalized anxiety disorder) Discharge Diagnosis 09/18/20 Obesity, Class I, BMI 30-34.9 Discharge Diagnosis 09/18/20 Headache Discharge Diagnosis 09/18/20 History of syncope Discharge Diagnosis 09/18/20 Snoring Discharge Diagnosis 09/18/20 Heart murmur Discharge Diagnosis 09/18/20 Vertigo Discharge Diagnosis 09/18/20 Costochondritis Discharge Diagnosis 09/18/20 Vital Signs Most recent to oldest [Reference Range]: 1 Height 165.2 cm (09/18/20 9:57 AM) Weight 95.1 kg (09/18/20 9:57 AM) Oxygen Saturation [94-100 %] 98 % (09/18/20 9:57 AM) Pulse Rate [55-90 bpm] 81 bpm (09/18/20 9:57 AM) Body Mass Index [18.5-24.99] 34.85 *>HHI* (09/18/20 9:57 AM) Blood Pressure [90-138/55-84 mm Hg] 116/ 64mm Hg (09/18/20 9:57 AM) Temperature [96.8-100.4 DegF] 98.1 DegF (09/18/20 9:57 AM) Blood pressure sites Arm, right (09/18/20 9:57 AM) Temperature Route Oral (09/18/20 9:57 AM) Weight Obtained Via Standing scale (09/18/20 9:57 AM) Social History Social History Type Response Smoking Status Former smoker, quit more than 30 days ago; Smokeless tobacco use: vaping; Type: Cigarettes; Previous treatment: None; Started at age: 17; Stopped at age: 18; entered on: 03/17/19 Sex
--- OUTSIDE RECORDS SUMMARY | 2022-12-10 07:26 | XMS_ITS | Continuity of Care Document ---
Author Name Unknown Organization [facility] Address [address] [place] [address]- Care Team Providers Care Pastry Cook Apprentice Name Role Phone Damien BAEZ, Beatris Olson Primary Care Physician [facility] Date(s): 03/16/22 - 04/15/22 [facility] [address] [place] [id number] Allergies, Adverse Reactions, Alerts No Known Allergies Immunizations Given and Recorded Vaccine Date Status Refusal Reason SARS-CoV-2 (COVID-19) mRNA-6728 vaccine 10/09/20 R ecorded tetanus/diphtheria/pertussis, acel(Tdap) 1 [...] rded 1Result Comment: [facility]# [id number] 2Result Comment: [facility]-[id number] 3Result Comment: [id number] 4Result Comment: [03/17/19 Unchart] entered in error [...] 9:34:00 EST, Inhaler, Route to Pharmacy Electronically, [id number], 165.2, cm, 07/02/20 14:16... Start [...] on: 03/17/19 Sex Patient Care team information Care Team Personnel Name: Damien BAEZ, Beatris Olson Position: [facility] Outreach Member Role: PCP Address: Address: [address] [place] [address]- Care Team Related Persons Name: NADEEM ROBERTSON Address: [address] [place] [address] Name: MARISELA AMEZQUITA Address: [address] [place] [address] Name: NASIM FRYE Address: [employer] Address: [address] [place] [address] Name: KALEB FRYE Address: [address] [place] [address]
--- OUTSIDE RECORDS SUMMARY | 2022-12-10 07:26 | XMS_ITS | Continuity of Care Document ---
Author Name Unknown Organization [facility] [place] Address [address] [place] [address]- Care Team Providers Care Pickling Operator Name Role Phone Kaitlyn Jean NP Primary Care Physician [facility] - 01/14/20 [facility] [place] Adult [address] [place] [address]- [facility] Allergies, Adverse Reactions, Alerts Substance Reaction Severity [...] Scotty rded 1Result Comment: [facility]-[id number] 2Result Comment: [id number] 3Result Comment: [03/17/19 Unchart] entered in error Medications Lexapro 20 mg oral tablet 1 tablet = 20 mg, By Mouth, Daily, # 30 tablet, 0 Refills, Maintenance, 04/17/19 14:25:47 EST, Tablet Start Date: 04/17/19 Status: Ordered mupirocin 2% topical ointment 1 application, Topically, 3 times a day, # 15 Gm, 0 Refills, Acute 04/09/20 11:15:00 EST, 12/25/19 11:02:00 EDT, Ointment, [facility], 1 application Topically 3 times a day, 165.2, cm, 12/20/19 7:58:00 EDT, Height Start Date: 12/25/19 Stop Date: 04/09/20 Status: Ordered Nexplanon 68 mg subcutaneous implant [...]
--- OUTSIDE RECORDS SUMMARY | 2022-12-10 07:26 | XMS_ITS | Continuity of Care Document ---
Author Name Unknown Organization [facility] ter Address [address] [place] [address]- Care Team Providers Care Overlay Plastician Name Role Phone Not on Staff, PCP Primary Care Physician Unavail able [facility]): 08/15/19 - 11/16/[address] [address]- [facility] Attending Physician: Kaitlyn Jean NP Admitting Physician: Kaitlyn Jean NP Referring Physician: Kaitlyn Jean NP Allergies, Adverse [...] Vaccine (oldterm) 99 Scotty rded 1Result Comment: [id number] 2Result Comment: [id number] 3Result Comment: [03/17/19 Unchart] entered in error [...]
--- OUTSIDE RECORDS SUMMARY | 2022-12-10 07:26 | XMS_ITS | Continuity of Care Document ---
Author Name Unknown Organization [facility] Address [address] [place] [address]- Care Team Providers Care Cell Manager Name Role Phone Damien BAEZ, Beatris Olson Primary Care Physician [facility] Date(s): 01/26/22 - 02/25/22 [facility] [address] [place] [id number] Allergies, Adverse Reactions, Alerts No [...] 1Result Comment: [facility]# [id number] 2Result Comment: [facility]-[id number] 3Result Comment: [id number] 4Result Comment: [03/17/19 Unchart] entered in error [...] 10/18/20 15:30:00 EDT, Route to Pharmacy Electronically, [facility], Partial fill upon patient request if the prescription is for a schedule II opioid d... Start Date: 10/18/20 Stop Date: 11/01/20 Status: Ordered ProAir HFA 90 mcg/inh inhalation aerosol with adapter 90 mcg, 1, puffs, Inhalation, Every 4 hours, PRN, # 1 each, Refills 3, Tot. Refills 3, Maintenance,07/30/20 9:34:00 EST, Inhaler, Route to Pharmacy Electronically, [id number], [facility], 165.2, cm, 07/02/20 14:16... Start Date: 07/30/20 Status: Ordered verapamil 40 mg oral tablet 1 tablet = 40 mg, By Mouth, Daily at bedtime, # 30 tablet, 5 Refills, Maintenance, 02/13/21 13:45:00 EDT, [id number], Partial fill upon patient request if the prescription is for a schedule II opioid drug., 165.2, cm, 02/13/21 12:46:0... Start Date: 02/13/21 Stop Date: 08/12/21 Status: Ordered Problem List Condition Confirmation Course Effective Dates Status Health St atus Informant Acne Confirmed Active Depression Confirmed Active Asthma, exercise induced Confirmed Active ARIANNA (generalized anxiety disorder) Confirmed Active H/O constipation Confirmed Active Headache Confirmed Active History of syncope Confirmed Active Mood disorder Confirmed Active Obesity, Class I, BMI 30-34.9 Confirmed Active Preventative health care Confirmed Active Perineural cyst Confirmed Active Umbilical discharge Confirmed Active Social History Social History Type Response Smoking Status Former smoker, quit more than 30 days ago; Smokeless tobacco use: vaping; Type: Cigarettes; Previous treatment: None; Started at age: 17; Stopped at age: 18; entered on: 03/17/19 Sex Patient Care team information Personnel Name: Damien BAEZ, Beatris Olson Address: Address: [address] [place] [id number]
--- OUTSIDE RECORDS SUMMARY | 2022-12-10 07:26 | XMS_ITS | Continuity of Care Document ---
Author Name Unknown Organization [facility] Address [address] [place] [address]- Care Team Providers Care Child Care Lead Teacher Name Role Phone Damien BAEZ, Beatris Olson Primary Care Physician [facility]): 02/09/22 - 03/11/22 [facility] [address] [place] [address] Allergies, Adverse Reactions, Alerts No Known Allergies Immunizations Given and Recorded Vaccine Date Status Refusal Reason SARS-CoV-2 (COVID-19) mRNA-4163 vaccine 10/09/20 R ecorded tetanus/diphtheria/pertussis, acel(Tdap) 1 [...] Vaccine (oldterm) 99 Scotty rded 1Result Comment: [facility]# [id number] 2Result Comment: [facility]-[id number] 3Result Comment: [id number] 4Result Comment: [03/17/19 Unchart] entered in error [...] 10/18/20 15:30:00 EDT, Route to Pharmacy Electronically, [facility], Partial fill upon patient request if the prescription is for a schedule II opioid d... Start Date: 10/18/20 Stop Date: 11/01/20 Status: Ordered ProAir HFA 90 mcg/inh inhalation aerosol with adapter 90 mcg, 1, puffs, Inhalation, Every 4 hours, PRN, # 1 each, Refills 3, Tot. Refills 3, Maintenance,07/30/20 9:34:00 EST, Inhaler, Route to Pharmacy Electronically, [id number], [facility], 165.2, cm, 07/02/20 14:16... Start Date: 07/30/20 Status: Ordered verapamil 40 mg oral tablet 1 tablet = 40 mg, By Mouth, Daily at bedtime, # 30 tablet, 5 Refills, Maintenance, 02/13/21 13:45:00 EDT, [facility][id number], Partial fill upon patient request if the [...] Name: Damien BAEZ, Beatris Olson Address: Address: [address] [place] [address]
--- OUTSIDE RECORDS SUMMARY | 2022-12-10 07:26 | XMS_ITS | Continuity of Care Document ---
Author Name Unknown Organization [facility] Address [address] [place] [address]- Care Team Providers Care Early Childhood Coordinator Name Role Phone Kaitlyn Jean NP Primary Care Physician [facility]): 12/22/19 - 01/21/20 [facility] [address] [place] [address]- [facility] Attending Physician: Admtr, Ar8 Admitting Physician: Admtr, Ar8 Referring Physician: Admtr, Ar8 Allergies, Adverse Reactions, [...] Human Papillomavirus Vaccine 01/18/12 Recorded tetanus/diphtheria/pertussis, acel(Tdap) 12/7/10 Recorded influ virus vac, H1N1, inactive(oldterm) 04/17/09 [...] Vaccine (oldterm) 99 Scotty rded 1Result Comment: [facility]-[id number] 2Result Comment: [id number] 3Result Comment: [03/17/19 Unchart] entered in error Medications Lexapro 20 mg oral tablet 1 tablet = 20 mg, By Mouth, Daily, # 30 tablet, 0 Refills, Maintenance, 04/17/19 14:25:47 EST, Tablet Start Date: 04/17/19 Status: Ordered mupirocin 2% topical ointment 1 application, Topically, 3 times a day, # 15 Gm, 0 Refills, Acute 04/09/20 11:15:00 EST, 12/25/19 11:02:00 EDT, Ointment, [facility], 1 application Topically [...]
--- OUTSIDE RECORDS SUMMARY | 2022-12-10 07:26 | XMS_ITS | Continuity of Care Document ---
Author Name Unknown Organization [facility] Address [address] [place] [address]- Care Team Providers Care Lot Associate Name Role Phone Damien BAEZ, Beatris Olson Primary Care Physician [facility](s): 02/16/22 - 03/18/22 [facility] [address] [place] [id number] Allergies, Adverse Reactions, Alerts No Known Allergies [...] rded 1Result Comment: [facility]# [id number] 2Result Comment: [facility]-[id number] 3Result Comment: [id number] 4Result Comment: [03/17/19 Unchart] entered in error [...] 10/18/20 15:30:00 EDT, Route to Pharmacy Electronically, [facility], Partial fill upon patient request if the prescription is for a schedule II opioid d... Start Date: 10/18/20 Stop Date: 11/01/20 Status: Ordered ProAir HFA 90 mcg/inh inhalation aerosol with adapter 90 mcg, 1, puffs, Inhalation, Every 4 hours, PRN, # 1 each, Refills 3, Tot. Refills 3, Maintenance,07/30/20 9:34:00 EST, Inhaler, Route to Pharmacy Electronically, [id number], [facility], 165.2, cm, 07/02/20 14:16... Start Date: 07/30/20 Status: Ordered verapamil 40 mg oral tablet 1 tablet = 40 mg, By Mouth, Daily at bedtime, # 30 tablet, 5 Refills, Maintenance, 02/13/21 13:45:00 EDT, [id number], Partial fill upon patient request if the [...] Name: Damien BAEZ, Beatris Olson Address: Address: [address] [place] [id number]
--- OUTSIDE RECORDS SUMMARY | 2022-12-10 07:26 | XMS_ITS | Continuity of Care Document ---
Author Name Unknown Organization [facility] Address [address] [place] [address]- Care Team Providers Care Assistant Banquet Manager Name Role Phone Not on Staff, PCP Primary Care Physician Unavail able [facility]): 10/11/19 - 11/10/19 [facility] Adult [address] [place] [address]- [facility] Attending Physician: Miranda BAR SUPERVISORKaitlyn Allergies, Adverse Reactions, Alerts Substance Reaction Severity [...] (oldterm) 99 Scotty rded 1Result Comment: [facility]-[id number] 2Result Comment: [id number] 3Result Comment: [03/17/19 Unchart] entered in error [...]
--- OUTSIDE RECORDS SUMMARY | 2022-12-10 07:26 | XMS_ITS | Continuity of Care Document ---
Author Name Unknown Organization [facility] Address [address] [place] [address]- Care Team Providers Care Field Servicer Name Role Phone Damien BAEZ, Beatris Olson Primary Care Physician [facility]s): 03/16/22 - 04/15/22 [facility] [address] [place] [address] Allergies, Adverse Reactions, Alerts No Known Allergies Immunizations Given and Recorded Vaccine Date Status Refusal Reason SARS-CoV-2 (COVID-19) mRNA-2303 vaccine 10/09/20 R ecorded tetanus/diphtheria/pertussis, acel(Tdap) 1 [...] Vaccine (oldterm) 99 Scotty rded 1Result Comment: [facility]# [id number] 2Result Comment: [facility]-[id number] 3Result Comment: [id number] 4Result Comment: [03/17/19 Unchart] entered in error [...] 9:34:00 EST, Inhaler, Route to Pharmacy Electronically, [id number], 165.2, cm, 07/02/20 14:16... Start [...] HOSPITAL Outreach Member Role: PCP Address: Address: [address] [place] [address]- Care Team Related Persons Name: NADEEM ROBERTSON Address: [address] [place] [address] Name: MARISELA AMEZQUITA Address: [address] [place] [address] Name: NASIM FRYE Address: [employer] Address: [address] [place] [address] Name: KALEB FRYE Address: [address] [place] [address]
--- OUTSIDE RECORDS SUMMARY | 2022-12-10 07:26 | XMS_ITS | Continuity of Care Document ---
Author Name Unknown Organization [facility] Address Unknown Care Team Providers Care Senior Control Systems Engineer Name Role Phone Damien BAEZ, Beatris Olson Primary Care Physician [facility]s): 02/18/21 - 03/20/21 [facility] Allergies, Adverse Reactions, Alerts Substance Reaction Severity [...] Vaccine (oldterm) 99 Scotty rded 1Result Comment: [facility]# [id number] 2Result Comment: [facility]-[id number] 3Result Comment: [id number] 4Result Comment: [03/17/19 Unchart] entered in error Medications magnesium oxide 400 mg oral tablet 1 tablet = 400 mg, By Mouth, Daily, for 30 days, take with meal, # 30 tablet, 5 Refills, Acute 08/12/21 13:44:00 EDT, 02/13/21 13:44:00 EDT, Tablet, [facility] #[id number], Partial fill upon patient request if the prescription is for a schedule I... Start Date: 02/13/21 Stop Date: 08/12/21 Status: Ordered Nexplanon 68 mg subcutaneous implant 1 each = 68 mg, Subcutaneous Infusion, Once, 0 Refills, Maintenance, 03/17/19 9:07:00 EDT Start Date: 03/17/19 Status: Ordered PARoxetine 10 mg oral tablet 10 mg, 1, tablet, By Mouth, Daily, # 14 tablet, Refills 0, Tot. Refills 0, Maintenance, 10/18/20 15:30:00 EDT, Route to Pharmacy Electronically, [facility], Partial fill upon patient request if the prescription is for a schedule II opioid d... Start Date: 10/18/20 Stop Date: 11/01/20 Status: Ordered ProAir HFA 90 mcg/inh inhalation aerosol with adapter 90 mcg, 1, puffs, Inhalation, Every 4 hours, PRN, # 1 each, Refills 3, Tot. Refills 3, Maintenance,07/30/20 9:34:00 EST, Inhaler, Route to Pharmacy Electronically, [id number], [facility], 165.2, cm, 07/02/20 14:16... Start Date: 07/30/20 Status: Ordered verapamil 40 mg oral tablet 1 tablet = 40 mg, By Mouth, Daily at bedtime, # 30 tablet, 5 Refills, Maintenance, 02/13/21 13:45:00 EDT, [facility] #[id number], Partial fill upon patient request if the [...]
--- OUTSIDE RECORDS SUMMARY | 2022-12-10 07:26 | XMS_ITS | Continuity of Care Document ---
Author Name Unknown Organization [facility] ter Address [address] [place] [address]- Care Team Providers Care Soa Integration Developer Name Role Phone Damien BAEZ, Beatris Olson Primary Care Physician [facility]s): 08/05/21 - 08/05/[address] [address]- Discharge Disposition: Transferred to an intermediate care [facility] Attending Physician: Joe Darnell MD Admitting Physician: Joe Darnell MD Referring Physician: Not on Staff, Referring MD Allergies, Adverse Reactions, Alerts No Known Allergies [...] (oldterm) 99 Scotty rded 1Result Comment: [facility]# [id number] 2Result Comment: [facility]-[id number] 3Result Comment: [id number] 4Result Comment: [03/17/19 Unchart] entered in error Medications doxylamine 25 mg oral tablet 1 tablet = 25 mg, By Mouth, Daily at bedtime, PRN Vomiting, # 30 tablet, 0 Refills, Acute 09/05/21 22:59:00 EDT, 08/05/21 22:59:00 EST, Tablet, [facility] #[id number], Partial fill upon patient request if the prescription is for a schedule II opi... Start Date: 08/05/21 Stop Date: 09/05/21 Status: Ordered magnesium oxide 400 mg oral tablet 1 tablet = 400 mg, By Mouth, Daily, for 30 days, take with meal, # 30 tablet, 5 Refills, Acute 08/12/21 13:44:00 EDT, 02/13/21 13:44:00 EDT, Tablet, [facility] #[id number], Partial fill upon patient request if the [...] 10/18/20 15:30:00 EDT, Route to Pharmacy Electronically, [facility], Partial fill upon patient request if the prescription is for a schedule II opioid d... Start Date: 10/18/20 Stop Date: 11/01/20 Status: Ordered ProAir HFA 90 mcg/inh inhalation aerosol with adapter 90 mcg, 1, puffs, Inhalation, Every 4 hours, PRN, # 1 each, Refills 3, Tot. Refills 3, Maintenance,07/30/20 9:34:00 EST, Inhaler, Route to Pharmacy Electronically, [id number], [facility], 165.2, cm, 07/02/20 14:16... Start Date: 07/30/20 Status: Ordered pyridoxine 25 mg oral tablet See Instructions, 1 tablet By Mouth TID 30 days, # 90 tablet, 0 Refills, Acute 09/05/21 23:00:00 EDT, 08/05/21 22:59:00 EST, Tablet, [facility] #[id number], Partial fill upon patient request if the prescription is for a schedule II opioid drug.,... Start Date: 08/05/21 Stop Date: 09/05/21 Status: Ordered verapamil 40 mg oral tablet 1 tablet = 40 mg, By Mouth, Daily at bedtime, # 30 tablet, 5 Refills, Maintenance, 02/13/21 13:45:00 EDT, [facility] #[id number], Partial fill upon patient request if the [...] Active Perineural cyst(Confirmed) Active Umbilical discharge(Confirmed) Active Vital Signs Most recent to oldest [Reference Range]: 1 Oxygen Saturation [94-100 %] 98 % (08/05/21 2:33 PM) Pulse Rate [55-90 bpm] 87 bpm (08/05/21 2:33 PM) Blood Pressure [90-138/55-84 mm Hg] 123/ 68mm Hg (08/05/21 2:33 PM) Respiratory Rate [16-30 br/min] 16 br/mi n (08/05/21 2:33 PM) Temperature [96.8-100.4 DegF] 99.0 DegF (08/05/21 2:33 PM) Mode of Delivery (Oxygen) Room air (08/05/21 2:33 PM) Blood pressure sites Arm, right (08/05/21 2:33 PM) Temperature Route Oral (08/05/21 2:33 PM) Social History Social History Type Response Smoking Status Former smoker, quit more than 30 days ago; Smokeless tobacco use: vaping; Type: Cigarettes; Previous treatment: None; Started at age: 17; Stopped at age: 18; entered on: 03/17/19 Sex
--- OUTSIDE RECORDS SUMMARY | 2022-12-10 07:26 | XMS_ITS | Continuity of Care Document ---
Author Name Unknown Organization [facility] Address [address] [facility], [address] Floor, [address] [place] [address]- Care Team Providers Care Actuary Manager Name Role Phone Kaitlyn Jean NP Primary Care Physician [facility]): 11/13/20 - 12/15/20 [facility] [address], [address], [address] [place] [address]- Attending Physician: Not on Staff, Attending MD Referring Physician: Saniya Oropeza Allergies, Adverse Reactions, Alerts Substance Reaction Severity [...] [facility]# [id number] 2Result Comment: [facility]-[id number] 3Result Comment: [id number] 4Result Comment: [03/17/19 Unchart] entered in error Medications Nexplanon 68 mg subcutaneous implant 1 each = 68 mg, Subcutaneous Infusion, Once, 0 Refills, Maintenance, 03/17/19 9:07:00 EDT Start Date: 03/17/19 Status: Ordered PARoxetine 10 mg oral tablet 10 mg, 1, tablet, By Mouth, Daily, # 14 tablet, Refills 0, Tot. Refills 0, Maintenance, 10/18/20 15:30:00 EDT, Route to Pharmacy Electronically, [facility], Partial fill upon patient request if the prescription is for a schedule II opioid d... Start Date: 10/18/20 Stop Date: 11/01/20 Status: Ordered ProAir HFA 90 mcg/inh inhalation aerosol with adapter 90 mcg, 1, puffs, Inhalation, Every 4 hours, PRN, # 1 each, Refills 3, Tot. Refills 3, Maintenance,07/30/20 9:34:00 EST, Inhaler, Route to Pharmacy Electronically, [id number], [facility], 165.2, cm, 07/02/20 14:16... [...]
--- OUTSIDE RECORDS SUMMARY | 2022-12-10 07:27 | XMS_ITS | Continuity of Care Document ---
Author Name Unknown Organization [facility] Address Unknown Care Team Providers Care Thread Separator Name Role Phone Damien BAEZ, Beatris Olson Primary Care Physician Encounter [facility] Date(s): 11/07/21 - 12/27/21 [facility] Attending Physician: Violetta Trujillo Admitting Physician: Violetta Trujillo Allergies, Adverse Reactions, Alerts No Known Allergies Immunizations Given and Recorded Vaccine Date Status Refusal Reason SARS-CoV-2 (COVID-19) mRNA-6101 vaccine 10/09/20 R ecorded tetanus/diphtheria/pertussis, acel(Tdap) 1 [...] rded 1Result Comment: [facility]# [id number] 2Result Comment: [facility]-[id number] 3Result Comment: [id number] 4Result Comment: [03/17/19 Unchart] entered in error Medications Nexplanon 68 mg subcutaneous implant 1 each = 68 mg, Subcutaneous Infusion, Once, 0 Refills, Maintenance, 03/17/19 9:07:00 EDT Start Date: 03/17/19 Status: Ordered PARoxetine 10 mg oral tablet 10 mg, 1, tablet, By Mouth, Daily, # 14 tablet, Refills 0, Tot. Refills 0, Maintenance, 10/18/20 15:30:00 EDT, Route to Pharmacy Electronically, [facility], Partial fill upon patient request if the prescription is for a schedule II opioid d... Start Date: 10/18/20 Stop Date: 11/01/20 Status: Ordered ProAir HFA 90 mcg/inh inhalation aerosol with adapter 90 mcg, 1, puffs, Inhalation, Every 4 hours, PRN, # 1 each, Refills 3, Tot. Refills 3, Maintenance,07/30/20 9:34:00 EST, Inhaler, Route to Pharmacy Electronically, [id number], [facility], 165.2, cm, 07/02/20 14:16... Start Date: 07/30/20 Status: Ordered verapamil 40 mg oral tablet 1 tablet = 40 mg, By Mouth, Daily at bedtime, # 30 tablet, 5 Refills, Maintenance, 02/13/21 13:45:00 EDT, [facility] #[id number], Partial fill upon patient request if the [...]
--- OUTSIDE RECORDS SUMMARY | 2022-12-10 07:27 | XMS_ITS | Continuity of Care Document ---
Author Name Unknown Organization [facility] Address [address] [place] [address]- Care Team Providers Care Eligibility Services Representative Name Role Phone Kaitlyn Jean NP Primary Care Physician [phone] [place] [facility] [place]s): 10/14/20 - 11/13/20 [facility] Adult [address] [place] [address]- Allergies, Adverse Reactions, Alerts Substance Reaction Severity [...] 1Result Comment: [facility]# [id number] 2Result Comment: [facility]-[id number] 3Result Comment: [id number] 4Result Comment: [03/17/19 Unchart] entered in error Medications Nexplanon 68 mg subcutaneous implant 1 each = 68 mg, Subcutaneous Infusion, Once, 0 Refills, Maintenance, 03/17/19 9:07:00 EDT Start Date: 03/17/19 Status: Ordered PARoxetine 10 mg oral tablet 10 mg, 1, tablet, By Mouth, Daily, # 14 tablet, Refills 0, Tot. Refills 0, Maintenance, 10/18/20 15:30:00 EDT, Route to Pharmacy Electronically, [facility], Partial fill upon patient request if the prescription is for a schedule II opioid d... Start Date: 10/18/20 Stop Date: 11/01/20 Status: Ordered ProAir HFA 90 mcg/inh inhalation aerosol with adapter 90 mcg, 1, puffs, Inhalation, Every 4 hours, PRN, # 1 each, Refills 3, Tot. Refills 3, Maintenance,07/30/20 9:34:00 EST, Inhaler, Route to Pharmacy Electronically, [id number], [facility], 165.2, cm, 07/02/20 14:16... [...]
--- OUTSIDE RECORDS SUMMARY | 2022-12-10 07:27 | XMS_ITS | Continuity of Care Document ---
Author Name Unknown Organization [facility] Address [address] [place] [address]- Care Team Providers Care Bindery Operator Name Role Phone Radha Ospina NP Primary Care Physician [place] [facility] [place](s): 03/27/19 - 07/02/19 [facility] [address] [place] [address]- [facility] Attending Physician: Kaushik Vinson MD Admitting Physician: Kaushik Vinson MD Referring Physician: Radha Ospina NP Allergies, Adverse Reactions, Alerts Substance Reaction [...] Vaccine (oldterm) 99 Scotty rded 1Result Comment: [facility]-[id number] 2Result Comment: [id number] 3Result Comment: [03/17/19 Unchart] entered in error [...] = 20 mg, By Mouth, Daily, # 90 tablet, 1 Refills, Maintenance, 06/26/19 19:06:00 EST, Tablet, [facility], 165.2, cm, 06/01/19 9:03:00 EST, Height Start Date: 06/26/19 Status: Ordered Lexapro 20 mg oral tablet [...]
--- OUTSIDE RECORDS SUMMARY | 2022-12-10 07:27 | XMS_ITS | Continuity of Care Document ---
Author Name Unknown Organization [facility] Address [address] [place] [address]- Care Team Providers Care Stummel Selector Name Role Phone Kaitlyn Jean NP Primary Care Physician [phone] [facility] - 01/14/20 [facility] Adult [address] [place] [address]- [facility] Attending Physician: Kirill Ruby MD Allergies, Adverse Reactions, Alerts Substance Reaction [...] Scotty rded 1Result Comment: [facility]-[id number] 2Result Comment: [id number] 3Result Comment: [03/17/19 Unchart] entered in error Medications Lexapro 20 mg oral tablet 1 tablet = 20 mg, By Mouth, Daily, # 30 tablet, 0 Refills, Maintenance, 04/17/19 14:25:47 EST, Tablet Start Date: 04/17/19 Status: Ordered mupirocin 2% topical ointment 1 application, Topically, 3 times a day, # 15 Gm, 0 Refills, Acute 04/09/20 11:15:00 EST, 12/25/19 11:02:00 EDT, Ointment, [facility], 1 application Topically [...]
--- OUTSIDE RECORDS SUMMARY | 2022-12-10 07:27 | XMS_ITS | Continuity of Care Document ---
Author Name Unknown Organization [facility] Address [address] [place] [address]- Care Team Providers Care Treatment Manager Name Role Phone Not on Staff, PCP Primary Care Physician Unavail able [facility]): 10[facility]/19 - 11/11/19 [facility] Adult [address] [place] [address]- [facility] Attending Physician: Elkin OSBORNE, Veto Shields Allergies, Adverse Reactions, Alerts Substance Reaction Severity [...] Vaccine (oldterm) 99 Scotty rded 1Result Comment: [facility]-[id number] 2Result Comment: [id number] 3Result Comment: [03/17/19 Unchart] entered in error [...] Preventative health care(Confirmed) Active Perineural cyst(Confirmed) Active Vital Signs Most recent to oldest [Reference Range]: 1 Height 165.2 cm (10/12/19 10:34 AM) Social History Social History Type Response Smoking Status Former smoker, quit more than 30 days ago; Smokeless tobacco use: vaping; Type: Cigarettes; Previous treatment: None; Started at age: 17; Stopped at age: 18; entered on: 03/17/19 Sex
--- OUTSIDE RECORDS SUMMARY | 2022-12-10 07:27 | XMS_ITS | Continuity of Care Document ---
Author Name Unknown Organization [facility] Address [address] [place] [address]- Care Team Providers Care Conservation Science Teacher Name Role Phone Kaitlyn Jean NP Primary Care Physician [facility]): 12/15/19 - 01/14/20 [facility] Adult [address] [place] [address]- [facility] Allergies, Adverse Reactions, Alerts Substance Reaction Severity [...] Vaccine (oldterm) 99 Scotty rded 1Result Comment: [facility]-[id number] 2Result Comment: [id number] 3Result Comment: [03/17/19 Unchart] entered in error Medications Lexapro 20 mg oral tablet 1 tablet = 20 mg, By Mouth, Daily, # 30 tablet, 0 Refills, Maintenance, 04/17/19 14:25:47 EST, Tablet Start Date: 04/17/19 Status: Ordered mupirocin 2% topical ointment 1 application, Topically, 3 times a day, # 15 Gm, 0 Refills, Acute 04/09/20 11:15:00 EST, 12/25/19 11:02:00 EDT, Ointment, [facility], 1 application Topically 3 [...]
--- OUTSIDE RECORDS SUMMARY | 2022-12-10 07:27 | XMS_ITS | Continuity of Care Document ---
Author Name Unknown Organization [facility] Address [address] [place] [address]- Care Team Providers Care Bindery Worker Name Role Phone Kaitlyn Jean NP Primary Care Physician [facility]s): 12/20/19 - 12/27/19 [facility] Adult [address] [place] [address]- [facility] Encounter Diagnosis Umbilical discharge(Discharge Diagnosis) - 12/20/19 Attending Physician: Kaitlny Jean NP Allergies, Adverse Reactions, Alerts Substance [...] Vaccine (oldterm) 99 Scotty rded 1Result Comment: [facility]-[id number] 2Result Comment: [id number] 3Result Comment: [03/17/19 Unchart] entered in error Medications Lexapro 20 mg oral tablet 1 tablet = 20 mg, By Mouth, Daily, # 30 tablet, 0 Refills, Maintenance, 04/17/19 14:25:47 EST, Tablet Start Date: 04/17/19 Status: Ordered mupirocin 2% topical cream 1 application, Topically, 3 times a day, # 15 Gm, 1 Refills, Acute 01/03/20 8:29:00 EDT, 12/20/19 8:29:00 EDT, Cream, [facility], 1 application Topically 3 times a day, 165.2, cm, 207:58:00 EDT, Height Start Date: 12/20/19 Stop Date: 01/03/20 Status: Ordered mupirocin 2% topical ointment 1 application, Topically, 3 times a day, # 15 Gm, 0 Refills, Acute 04/09/20 11:15:00 EST, 12/25/19 11:02:00 EDT, Ointment, [facility], 1 application Topically 3 times [...] Diagnosis Diagnosis Type Effective Dates Health Status Cl inical Service Informant Umbilical discharge Discharge Diagnosis 12/20/19 Vital Signs Most recent to oldest [Reference Range]: 1 Height 165.2 cm (12/20/19 7:58 AM) Social History Social History Type Response Smoking Status Former smoker, quit more than 30 days ago; Smokeless tobacco use: vaping; Type: Cigarettes; Previous treatment: None; Started at age: 17; Stopped at age: 18; entered on: 03/17/19 Sex
--- OUTSIDE RECORDS SUMMARY | 2022-12-10 07:27 | XMS_ITS | Continuity of Care Document ---
Author Name Unknown Organization [facility] Address [address] [place] [address]- Care Team Providers Care Rn Dermatology Name Role Phone Damien BAEZ, Beatris Olson Primary Care Physician [facility] Date[facility]s): 01/12/22 - 02/11/22 [facility] [address] [place] [address] Allergies, Adverse Reactions, Alerts No Known [...] Comment: [facility]# [id number] 2Result Comment: [facility]-[id number] 3Result Comment: [id number] 4Result Comment: [03/17/19 Unchart] entered in error [...] 10/18/20 15:30:00 EDT, Route to Pharmacy Electronically, [facility], Partial fill upon patient request if the prescription is for a schedule II opioid d... Start Date: 10/18/20 Stop Date: 11/01/20 Status: Ordered ProAir HFA 90 mcg/inh inhalation aerosol with adapter 90 mcg, 1, puffs, Inhalation, Every 4 hours, PRN, # 1 each, Refills 3, Tot. Refills 3, Maintenance,07/30/20 9:34:00 EST, Inhaler, Route to Pharmacy Electronically, [id number], [facility], 165.2, cm, 07/02/20 14:16... Start Date: 07/30/20 Status: Ordered verapamil 40 mg oral tablet 1 tablet = 40 mg, By Mouth, Daily at bedtime, # 30 tablet, 5 Refills, Maintenance, 02/13/21 13:45:00 EDT, [id number], Partial fill upon patient request if the [...] Personnel Name: Damien BAEZ, Beatris Olson Address: [address] [place] [address]
--- OUTSIDE RECORDS SUMMARY | 2022-12-10 07:27 | XMS_ITS | Continuity of Care Document ---
Author Name Unknown Organization [facility] Address [address] [place] [address]- Care Team Providers Care Hub Borer Name Role Phone Kaitlyn Jean NP Primary Care Physician Encounter [facility] Date(s): 10/02/20 - 11/01/20 [facility] Adult [address] [place] [address]- Allergies, Adverse Reactions, Alerts Substance Reaction Severity Status NKA Active Immunizations Given and Recorded Vaccine Date Status Refusal Reason SARS-CoV-2 (COVID-19) mRNA-2173 vaccine 10/09/20 R ecorded tetanus/diphtheria/pertussis, acel(Tdap) 1 [...] Vaccine (oldterm) 99 Scotty rded 1Result Comment: [facility]# [id number] 2Result Comment: [facility]-[id number] 3Result Comment: [id number] 4Result Comment: [03/17/19 Unchart] entered in error Medications Nexplanon 68 mg subcutaneous implant 1 each = 68 mg, Subcutaneous Infusion, Once, 0 Refills, Maintenance, 03/17/19 9:07:00 EDT Start Date: 03/17/19 Status: Ordered PARoxetine 10 mg oral tablet 10 mg, 1, tablet, By Mouth, Daily, # 14 tablet, Refills 0, Tot. Refills 0, Maintenance, 10/18/20 15:30:00 EDT, Route to Pharmacy Electronically, [facility], Partial fill upon patient request if the prescription is for a schedule II opioid d... Start Date: 10/18/20 Stop Date: 11/01/20 Status: Ordered ProAir HFA 90 mcg/inh inhalation aerosol with adapter 90 mcg, 1, puffs, Inhalation, Every 4 hours, PRN, # 1 each, Refills 3, Tot. Refills 3, Maintenance,07/30/20 9:34:00 EST, Inhaler, Route to Pharmacy Electronically, [id number], [facility], 165.2, cm, 07/02/20 14:16... [...]
--- OUTSIDE RECORDS SUMMARY | 2022-12-10 07:27 | XMS_ITS | Continuity of Care Document ---
Author Name Unknown Organization [facility] Address [address] [place] [address]- Care Team Providers Care Manager Utilization Review Name Role Phone Kaitlyn Jean NP Primary Care Physician Encounter [facility] [place] [place] Date(s): 10/15/20 - 11/14/20 [facility] Adult [address] [place] [address]- Allergies, Adverse Reactions, Alerts Substance Reaction Severity Status NKA Active Immunizations Given and Recorded Vaccine Date Status Refusal Reason SARS-CoV-2 (COVID-19) mRNA-6993 vaccine 10/09/20 R ecorded tetanus/diphtheria/pertussis, acel(Tdap) 1 [...] Comment: [facility]# [id number] 2Result Comment: [facility]-[id number] 3Result Comment: [id number] 4Result Comment: [03/17/19 Unchart] entered in error Medications Nexplanon 68 mg subcutaneous implant 1 each = 68 mg, Subcutaneous Infusion, Once, 0 Refills, Maintenance, 03/17/19 9:07:00 EDT Start Date: 03/17/19 Status: Ordered PARoxetine 10 mg oral tablet 10 mg, 1, tablet, By Mouth, Daily, # 14 tablet, Refills 0, Tot. Refills 0, Maintenance, 10/18/20 15:30:00 EDT, Route to Pharmacy Electronically, [facility], Partial fill upon patient request if the prescription is for a schedule II opioid d... Start Date: 10/18/20 Stop Date: 11/01/20 Status: Ordered ProAir HFA 90 mcg/inh inhalation aerosol with adapter 90 mcg, 1, puffs, Inhalation, Every 4 hours, PRN, # 1 each, Refills 3, Tot. Refills 3, Maintenance,07/30/20 9:34:00 EST, Inhaler, Route to Pharmacy Electronically, [id number], [facility], 165.2, cm, 07/02/20 [...]
--- OUTSIDE RECORDS SUMMARY | 2022-12-10 07:27 | XMS_ITS | Continuity of Care Document ---
Author Name Unknown Organization [facility] Address Unknown Care Team Providers Care Freight Delivery Driver Name Role Phone Damien BAEZ, Beatris Whitney Primary Care Physician [facility] Date[facility]s): 05/01/21 - 07/30/21 [facility] Attending Physician: Soraida Ureña MD Admitting Physician: Soraida Ureña MD Allergies, Adverse Reactions, Alerts No Known Allergies Immunizations Given and Recorded Vaccine Date Status Refusal Reason SARS-CoV-2 (COVID-19) [id number] vaccine 10/09/20 R ecorded tetanus/diphtheria/pertussis, acel(Tdap) 1 [...] 10/22/12 Recorded Human Papillomavirus Vaccine 01/18/12 Recorded influ [...] rded Haemophilus B Conj Vaccine (oldterm) 99 Scotyt rded Haemophilus B Conj Vaccine (oldterm) 99 Scotty rded 1Result Comment: [facility]# [id number] 2Result Comment: [facility]-[id number] 3Result Comment: [id number] 4Result Comment: [03/17/19 Unchart] entered in error Medications magnesium oxide 400 mg oral tablet 1 tablet = 400 mg, By Mouth, Daily, for 30 days, take with meal, # 30 tablet, 5 Refills, Acute 08/12/21 13:44:00 EDT, 02/13/21 13:44:00 EDT, Tablet, [facility] #[id number], Partial fill upon patient request if the [...] 10/18/20 15:30:00 EDT, Route to Pharmacy Electronically, [facility], Partial fill upon patient request if the prescription is for a schedule II opioid d... Start Date: 10/18/20 Stop Date: 11/01/20 Status: Ordered ProAir HFA 90 mcg/inh inhalation aerosol with adapter 90 mcg, 1, puffs, Inhalation, Every 4 hours, PRN, # 1 each, Refills 3, Tot. Refills 3, Maintenance,07/30/20 9:34:00 EST, Inhaler, Route to Pharmacy Electronically, [id number], [facility], 165.2, cm, 07/02/20 14:16... Start Date: 07/30/20 Status: Ordered verapamil 40 mg oral tablet 1 tablet = 40 mg, By Mouth, Daily at bedtime, # 30 tablet, 5 Refills, Maintenance, 02/13/21 13:45:00 EDT, [id number], Partial fill upon patient request if the [...]
--- OUTSIDE RECORDS SUMMARY | 2022-12-10 07:27 | XMS_ITS | Continuity of Care Document ---
Author Name Unknown Organization [facility] Address [address] [place] [address] samuel, [address] [place] [address]- Care Team Providers Care Power And Recovery Supervisor Name Role Phone Not on Staff, PCP Primary Care Physician Unavail able [facility]s): 08/15/19 - 11/30/19 [facility] [address] [place] [address] Drive, [address] [place] [address]- [facility] Attending Physician: Not on Staff, Attending MD [...] Vaccine (oldterm) 99 Scotty rded 1Result Comment: [id number] 2Result Comment: [id number] 3Result Comment: [03/17/19 Unchart] entered in error [...] oldest [Reference Range]: 1 Height 165.2 cm (10/30/19 3:54 PM) Weight 89.9 kg (10/30/19 3:54 PM) Body Mass Index [18.5-24.99] 32.94 *>HHI* (10/30/19 3:54 PM) Social History Social History Type Response Smoking Status Former smoker, quit more than 30 days ago; Smokeless tobacco use: vaping; Type: Cigarettes; Previous treatment: None; Started at age: 17; Stopped at age: 18; entered on: 03/17/19 Sex
--- OUTSIDE RECORDS SUMMARY | 2022-12-10 07:27 | XMS_ITS | Continuity of Care Document ---
Author Name Unknown Organization [facility] Address Unknown Care Team Providers Care Dental Surgeon Name Role Phone Damien BAEZ, Beatris Olson Primary Care Physician [facility]s): 02/17/21 - 03/19/21 [facility] Allergies, Adverse Reactions, Alerts Substance Reaction [...] (oldterm) 99 Scotty rded 1Result Comment: [facility]# [id number] 2Result Comment: [facility]-[id number] 3Result Comment: [id number] 4Result Comment: [03/17/19 Unchart] entered in error Medications magnesium oxide 400 mg oral tablet 1 tablet = 400 mg, By Mouth, Daily, for 30 days, take with meal, # 30 tablet, 5 Refills, Acute 08/12/21 13:44:00 EDT, 02/13/21 13:44:00 EDT, Tablet, [facility] #[id number], Partial fill upon patient request if the [...] 10/18/20 15:30:00 EDT, Route to Pharmacy Electronically, [facility], Partial fill upon patient request if the prescription is for a schedule II opioid d... Start Date: 10/18/20 Stop Date: 11/01/20 Status: Ordered ProAir HFA 90 mcg/inh inhalation aerosol with adapter 90 mcg, 1, puffs, Inhalation, Every 4 hours, PRN, # 1 each, Refills 3, Tot. Refills 3, Maintenance,07/30/20 9:34:00 EST, Inhaler, Route to Pharmacy Electronically, [id number], [facility], 165.2, cm, 07/02/20 14:16... Start Date: 07/30/20 Status: Ordered verapamil 40 mg oral tablet 1 tablet = 40 mg, By Mouth, Daily at bedtime, # 30 tablet, 5 Refills, Maintenance, 02/13/21 13:45:00 EDT, [facility] #[id number], Partial fill upon patient request if the [...]
--- OUTSIDE RECORDS SUMMARY | 2022-12-10 07:27 | XMS_ITS | Continuity of Care Document ---
Author Name Unknown Organization [facility] Address Unknown Care Team Providers Care Vest Backer Name Role Phone Damien BAEZ, Beatris Olson Primary Care Physician [facility]s): 06/09/21 - 07/09/21 [facility] Allergies, Adverse Reactions, Alerts No Known Allergies Immunizations Given and Recorded Vaccine Date Status Refusal Reason SARS-CoV-2 (COVID-19) mRNA-5028 vaccine 10/09/20 R ecorded tetanus/diphtheria/pertussis, acel(Tdap) 1 [...] Vaccine (oldterm) 99 Scotty rded 1Result Comment: [facility]# [id number] 2Result Comment: [facility]-[id number] 3Result Comment: [id number] 4Result Comment: [03/17/19 Unchart] entered in error Medications magnesium oxide 400 mg oral tablet 1 tablet = 400 mg, By Mouth, Daily, for 30 days, take with meal, # 30 tablet, 5 Refills, Acute 08/12/21 13:44:00 EDT, 02/13/21 13:44:00 EDT, Tablet, [facility] #[id number], Partial fill upon patient request if the [...] 10/18/20 15:30:00 EDT, Route to Pharmacy Electronically, [facility], Partial fill upon patient request if the prescription is for a schedule II opioid d... Start Date: 10/18/20 Stop Date: 11/01/20 Status: Ordered ProAir HFA 90 mcg/inh inhalation aerosol with adapter 90 mcg, 1, puffs, Inhalation, Every 4 hours, PRN, # 1 each, Refills 3, Tot. Refills 3, Maintenance,07/30/20 9:34:00 EST, Inhaler, Route to Pharmacy Electronically, [id number], [facility], 165.2, cm, 07/02/20 14:16... Start Date: 07/30/20 Status: Ordered verapamil 40 mg oral tablet 1 tablet = 40 mg, By Mouth, Daily at bedtime, # 30 tablet, 5 Refills, Maintenance, 02/13/21 13:45:00 EDT, [facility] #[id number], Partial fill upon patient request if the [...]
--- OUTSIDE RECORDS SUMMARY | 2022-12-10 07:27 | XMS_ITS | Continuity of Care Document ---
Author Name Unknown Organization [facility] Address Unknown Care Team Providers Care Bladder Tier Name Role Phone Damien BAEZ, Beatris Olson Primary Care Physician [facility]s): 02/19/21 - 03/21/21 [facility] Allergies, Adverse Reactions, Alerts Substance Reaction [...] 1Result Comment: [facility]# [id number] 2Result Comment: [facility]-[id number] 3Result Comment: [id number] 4Result Comment: [03/17/19 Unchart] entered in error Medications magnesium oxide 400 mg oral tablet 1 tablet = 400 mg, By Mouth, Daily, for 30 days, take with meal, # 30 tablet, 5 Refills, Acute 08/12/21 13:44:00 EDT, 02/13/21 13:44:00 EDT, Tablet, [facility] #[id number], Partial fill upon patient request if the [...] 9:34:00 EST, Inhaler, Route to Pharmacy Electronically, [id number], [facility], 165.2, cm, 07/02/20 14:16... Start Date: 07/30/20 Status: Ordered verapamil 40 mg oral tablet 1 tablet = 40 mg, By Mouth, Daily at bedtime, # 30 tablet, 5 Refills, Maintenance, 02/13/21 13:45:00 EDT, [facility] #[id number], Partial fill upon patient request if the [...]
--- OUTSIDE RECORDS SUMMARY | 2022-12-10 07:27 | XMS_ITS | Continuity of Care Document ---
Author Name Unknown Organization [facility] Address [address] [place] [address]- Care Team Providers Care Dairy Tester Name Role Phone Not on Staff, PCP Primary Care Physician Unavail able [facility]s): 11/07/19 - 12/07/19 [facility] Adult [address] [place] [address]- [facility] Attending Physician: Dinh Osorio Admitting Physician: Dinh [...] Papillomavirus Vaccine 03/21/12 Recorded Human Papillomavirus Vaccine 8/20/12 Recorded tetanus/diphtheria/pertussis, acel(Tdap) 05/06/10 Recorded influ virus [...] Vaccine (oldterm) 99 Scotty rded 1Result Comment: [id number] 2Result Comment: [id number] 3Result Comment: [03/17/19 Unchart] entered in error [...]
--- OUTSIDE RECORDS SUMMARY | 2022-12-10 07:27 | XMS_ITS | Continuity of Care Document ---
Author Name Unknown Organization [facility] Address [address] [place] [address], [address] [place] [address]- Care Team Providers Care Product Managent Intern Name Role Phone Damien BAEZ, Beatris Olson Primary Care Physician [facility] Date(s): 08/06/21 - 09/05/21 [facility] [address] [facility], [address] [place] [address]- Allergies, Adverse Reactions, Alerts No Known Allergies [...] Conjugate Vaccine 06/11/15 Recorded Meningococcal Conjugate Vaccine 8/20/12 Recorded Human Papillomavirus Vaccine 07/22/12 Recorded Human [...] Vaccine (oldterm) 99 Scotty rded 1Result Comment: [facility]# [id number] 2Result Comment: [facility]-[id number] 3Result Comment: [id number] 4Result Comment: [03/17/19 Unchart] entered in error Medications Nexplanon 68 mg subcutaneous implant 1 each = 68 mg, Subcutaneous Infusion, Once, 0 Refills, Maintenance, 03/17/19 9:07:00 EDT Start Date: 03/17/19 Status: Ordered PARoxetine 10 mg oral tablet 10 mg, 1, tablet, By Mouth, Daily, # 14 tablet, Refills 0, Tot. Refills 0, Maintenance, 10/18/20 15:30:00 EDT, Route to Pharmacy Electronically, [facility], Partial fill upon patient request if the prescription is for a schedule II opioid d... Start Date: 10/18/20 Stop Date: 11/01/20 Status: Ordered ProAir HFA 90 mcg/inh inhalation aerosol with adapter 90 mcg, 1, puffs, Inhalation, Every 4 hours, PRN, # 1 each, Refills 3, Tot. Refills 3, Maintenance,07/30/20 9:34:00 EST, Inhaler, Route to Pharmacy Electronically, [id number], [facility], 165.2, cm, 07/02/20 14:16... Start Date: 07/30/20 Status: Ordered verapamil 40 mg oral tablet 1 tablet = 40 mg, By Mouth, Daily at bedtime, # 30 tablet, 5 Refills, Maintenance, 02/13/21 13:45:00 EDT, [facility] #[id number], Partial fill upon patient request if the [...]
--- OUTSIDE RECORDS SUMMARY | 2022-12-10 07:27 | XMS_ITS | Continuity of Care Document ---
Author Name Unknown Organization [facility] Address [address] [place] [address]- Care Team Providers Care Over The Road Driver Name Role Phone Kaitlyn Jean NP Primary Care Physician Encounter [facility] [place] Date(s): 10/15/20 - 11/14/20 [facility] Adult [address] [place] [address]- Allergies, Adverse Reactions, Alerts Substance Reaction Severity Status NKA Active Immunizations Given and Recorded Vaccine Date Status Refusal Reason SARS-CoV-2 (COVID-19) mRNA-6263 vaccine 10/09/20 R ecorded tetanus/diphtheria/pertussis, acel(Tdap) 1 [...] rded 1Result Comment: [facility]# [id number] 2Result Comment: [facility]-[id number] 3Result Comment: [id number] 4Result Comment: [03/17/19 Unchart] entered in error Medications Nexplanon 68 mg subcutaneous implant 1 each = 68 mg, Subcutaneous Infusion, Once, 0 Refills, Maintenance, 03/17/19 9:07:00 EDT Start Date: 03/17/19 Status: Ordered PARoxetine 10 mg oral tablet 10 mg, 1, tablet, By Mouth, Daily, # 14 tablet, Refills 0, Tot. Refills 0, Maintenance, 10/18/20 15:30:00 EDT, Route to Pharmacy Electronically, [facility], Partial fill upon patient request if the prescription is for a schedule II opioid d... Start Date: 10/18/20 Stop Date: 11/01/20 Status: Ordered ProAir HFA 90 mcg/inh inhalation aerosol with adapter 90 mcg, 1, puffs, Inhalation, Every 4 hours, PRN, # 1 each, Refills 3, Tot. Refills 3, Maintenance,07/30/20 9:34:00 EST, Inhaler, Route to Pharmacy Electronically, [id number], [facility], 165.2, cm, 07/02/20 14:16... [...]
--- OUTSIDE RECORDS SUMMARY | 2022-12-10 07:27 | XMS_ITS | Continuity of Care Document ---
Author Name Unknown Organization [facility] Address [address] [place] [address]- Care Team Providers Care Insurance Sales Supervisor Name Role Phone Kaitlyn Jean NP Primary Care Physician [place] [facility]20 - 11/20/20 [facility] [address] [place] [address]- Allergies, Adverse Reactions, Alerts Substance Reaction Severity Status NKA Active Immunizations Given and Recorded Vaccine Date Status Refusal Reason SARS-CoV-2 (COVID-19) mRNA-5155 vaccine 10/09/20 R ecorded tetanus/diphtheria/pertussis, acel(Tdap) 1 [...] (oldterm) 99 Scotty rded 1Result Comment: [facility]# [id number] 2Result Comment: [facility]-[id number] 3Result Comment: [id number] 4Result Comment: [03/17/19 Unchart] entered in error Medications Nexplanon 68 mg subcutaneous implant 1 each = 68 mg, Subcutaneous Infusion, Once, 0 Refills, Maintenance, 03/17/19 9:07:00 EDT Start Date: 03/17/19 Status: Ordered PARoxetine 10 mg oral tablet 10 mg, 1, tablet, By Mouth, Daily, # 14 tablet, Refills 0, Tot. Refills 0, Maintenance, 10/18/20 15:30:00 EDT, Route to Pharmacy Electronically, [facility], Partial fill upon patient request if the prescription is for a schedule II opioid d... Start Date: 10/18/20 Stop Date: 11/01/20 Status: Ordered ProAir HFA 90 mcg/inh inhalation aerosol with adapter 90 mcg, 1, puffs, Inhalation, Every 4 hours, PRN, # 1 each, Refills 3, Tot. Refills 3, Maintenance,07/30/20 9:34:00 EST, Inhaler, Route to Pharmacy Electronically, [id number], [facility], 165.2, cm, 07/02/20 [...]
--- OUTSIDE RECORDS SUMMARY | 2022-12-10 07:27 | XMS_ITS | Continuity of Care Document ---
Author Name Unknown Organization [facility] Address [address] [facility], [address] Floor, [address] [place] [address]- Care Team Providers Care Ring Rolling Machine Operator Name Role Phone Kaitlyn Jean NP Primary Care Physician [phone] Encounter [facility] Date(s): 11/15/20 - 12/15/20 [facility] [address], [address] Floor, [address] [place] [address] Attending Physician: Dinh Osorio Admitting Physician: AdmDinh dominguez Referring Physician: AdmtrDinh Allergies, Adverse Reactions, Alerts Substance Reaction Severity Status NKA Active Immunizations Given and Recorded Vaccine Date Status Refusal Reason SARS-CoV-2 (COVID-19) mRNA-1274 vaccine 10/09/20 R ecorded tetanus/diphtheria/pertussis, acel(Tdap) 1 [...] Vaccine (oldterm) 99 Scotty rded 1Result Comment: [facility]# [id number] 2Result Comment: [facility]-[id number] 3Result Comment: [id number] 4Result Comment: [03/17/19 Unchart] entered in error Medications Nexplanon 68 mg subcutaneous implant 1 each = 68 mg, Subcutaneous Infusion, Once, 0 Refills, Maintenance, 03/17/19 9:07:00 EDT Start Date: 03/17/19 Status: Ordered PARoxetine 10 mg oral tablet 10 mg, 1, tablet, By Mouth, Daily, # 14 tablet, Refills 0, Tot. Refills 0, Maintenance, 10/18/20 15:30:00 EDT, Route to Pharmacy Electronically, [facility], Partial fill upon patient request if the prescription is for a schedule II opioid d... Start Date: 10/18/20 Stop Date: 11/01/20 Status: Ordered ProAir HFA 90 mcg/inh inhalation aerosol with adapter 90 mcg, 1, puffs, Inhalation, Every 4 hours, PRN, # 1 each, Refills 3, Tot. Refills 3, Maintenance,07/30/20 9:34:00 EST, Inhaler, Route to Pharmacy Electronically, [id number], [facility], 165.2, cm, 07/02/20 14:16... Start [...]
--- OUTSIDE RECORDS SUMMARY | 2022-12-10 07:27 | XMS_ITS | Continuity of Care Document ---
Author Name Unknown Organization [facility] Address [address] [place] [address] samuel, [address] [place] [address]- Care Team Providers Care Marine Biologist Name Role Phone Kaitlyn Jean NP Primary Care Physician [phone] Encounter [facility] Date(s): 08/21/20 - 09/20/20 [facility] [address] [place] [address], [address] [place], [place] [address] Allergies, Adverse Reactions, Alerts Substance Reaction Severity [...] 1Result Comment: [facility]# [id number] 2Result Comment: [facility]-[id number] 3Result Comment: [id number] 4Result Comment: [03/17/19 Unchart] entered in error [...] 9:34:00 EST, Inhaler, Route to Pharmacy Electronically, [id number], 165.2, cm, 07/02/20 14:16... Start Date: 07/30/20 [...]
--- OUTSIDE RECORDS SUMMARY | 2022-12-10 07:27 | XMS_ITS | Continuity of Care Document ---
Author Name Unknown Organization [facility] Address [address] [place] [address]- Care Team Providers Care Data Management Associate Name Role Phone Kaitlyn Jean NP Primary Care Physician [phone] Encounter [facility] Date(s): 10/29/20 - 11/28/20 [facility] Adult [address] [place] [address]- Attending Physician: Dinh Osorio Admitting Physician: AdmDinh dominguez Referring Physician: AdmtrDinh Allergies, Adverse Reactions, Alerts Substance Reaction Severity Status NKA Active Immunizations Given and Recorded Vaccine Date Status Refusal Reason SARS-CoV-2 (COVID-19) mRNA-3806 vaccine 10/09/20 R ecorded tetanus/diphtheria/pertussis, acel(Tdap) 1 [...] rded 1Result Comment: [facility]# [id number] 2Result Comment: [facility]-[id number] 3Result Comment: [id number] 4Result Comment: [03/17/19 Unchart] entered in error Medications Nexplanon 68 mg subcutaneous implant 1 each = 68 mg, Subcutaneous Infusion, Once, 0 Refills, Maintenance, 03/17/19 9:07:00 EDT Start Date: 03/17/19 Status: Ordered PARoxetine 10 mg oral tablet 10 mg, 1, tablet, By Mouth, Daily, # 14 tablet, Refills 0, Tot. Refills 0, Maintenance, 10/18/20 15:30:00 EDT, Route to Pharmacy Electronically, [facility], Partial fill upon patient request if the prescription is for a schedule II opioid d... Start Date: 10/18/20 Stop Date: 11/01/20 Status: Ordered ProAir HFA 90 mcg/inh inhalation aerosol with adapter 90 mcg, 1, puffs, Inhalation, Every 4 hours, PRN, # 1 each, Refills 3, Tot. Refills 3, Maintenance,07/30/20 9:34:00 EST, Inhaler, Route to Pharmacy Electronically, [id number], [facility]278, 165.2, cm, 07/02/20 14:16... [...]
--- OUTSIDE RECORDS SUMMARY | 2022-12-10 07:27 | XMS_ITS | Continuity of Care Document ---
Author Name Unknown Organization [facility] Address [address] [place] [address]- Care Team Providers Care Splunk Architect Name Role Phone Kaitlyn Jean NP Primary Care Physician [place] [facility] [place] 10/18/20 - 11/28/20 [facility] Adult [address] [place] [address]- Attending Physician: Kaitlyn Jean NP Allergies, Adverse Reactions, Alerts Substance Reaction Severity Status NKA Active Immunizations Given and Recorded Vaccine Date Status Refusal Reason SARS-CoV-2 (COVID-19) mRNA-1663 vaccine 10/09/20 R ecorded tetanus/diphtheria/pertussis, acel(Tdap) 1 [...] Scotty rded 1Result Comment: [facility]# [id number] 2Result Comment: [facility]-[id number] 3Result Comment: [id number] 4Result Comment: [03/17/19 Unchart] entered in error Medications Nexplanon 68 mg subcutaneous implant 1 each = 68 mg, Subcutaneous Infusion, Once, 0 Refills, Maintenance, 03/17/19 9:07:00 EDT Start Date: 03/17/19 Status: Ordered PARoxetine 10 mg oral tablet 10 mg, 1, tablet, By Mouth, Daily, # 14 tablet, Refills 0, Tot. Refills 0, Maintenance, 10/18/20 15:30:00 EDT, Route to Pharmacy Electronically, [facility]17, Partial fill upon patient request if the prescription is for a schedule II opioid d... Start Date: 10/18/20 Stop Date: 11/01/20 Status: Ordered ProAir HFA 90 mcg/inh inhalation aerosol with adapter 90 mcg, 1, puffs, Inhalation, Every 4 hours, PRN, # 1 each, Refills 3, Tot. Refills 3, Maintenance,07/30/20 9:34:00 EST, Inhaler, Route to Pharmacy Electronically, [id number], [facility], 165.2, cm, 07/02/20 [...]
--- OUTSIDE RECORDS SUMMARY | 2022-12-10 07:27 | XMS_ITS | Continuity of Care Document ---
Author Name Unknown Organization [facility] Address [address] [place] [address]- Care Team Providers Care Plycor Operator Name Role Phone Kaitlyn Jean NP Primary Care Physician [facility]counter [facility] Date(s): 05/28/20 - 06/27/20 [facility] Adult [address] [place] [address]- Allergies, Adverse Reactions, Alerts Substance Reaction Severity [...] Vaccine (oldterm) 99 Scotty rded 1Result Comment: [facility]-[id number] 2Result Comment: [id number] 3Result Comment: [03/17/19 Unchart] entered in error [...]
--- OUTSIDE RECORDS SUMMARY | 2022-12-10 07:27 | XMS_ITS | Continuity of Care Document ---
Author Name Unknown Organization [facility] Address Unknown Care Team Providers Care Plumber Apprentice Name Role Phone Damien BAEZ, Beatris Olson Primary Care Physician Encounter [facility] Date(s): 12/17/21 - 01/16/22 [facility] Attending Physician: Dinh Osorio Admitting Physician: Dinh Osorio Referring Physician: Dinh Osorio Allergies, Adverse Reactions, Alerts No Known Allergies Immunizations Given and Recorded Vaccine Date Status Refusal Reason SARS-CoV-2 (COVID-19) pDAW-1949 vaccine 10/09/20 R ecorded tetanus/diphtheria/pertussis, acel(Tdap) 1 [...] rded 1Result Comment: [facility]# [id number] 2Result Comment: [facility]-[id number] 3Result Comment: [id number] 4Result Comment: [03/17/19 Unchart] entered in error [...] 10/18/20 15:30:00 EDT, Route to Pharmacy Electronically, [facility], Partial fill upon patient request if the prescription is for a schedule II opioid d... Start Date: 10/18/20 Stop Date: 11/01/20 Status: Ordered ProAir HFA 90 mcg/inh inhalation aerosol with adapter 90 mcg, 1, puffs, Inhalation, Every 4 hours, PRN, # 1 each, Refills 3, Tot. Refills 3, Maintenance,07/30/20 9:34:00 EST, Inhaler, Route to Pharmacy Electronically, [id number], [facility], 165.2, cm, 07/02/20 14:16... Start Date: 07/30/20 Status: Ordered verapamil 40 mg oral tablet 1 tablet = 40 mg, By Mouth, Daily at bedtime, # 30 tablet, 5 Refills, Maintenance, 02/13/21 13:45:00 EDT, [id number], Partial fill upon patient request if the [...]
--- OUTSIDE RECORDS SUMMARY | 2022-12-10 07:27 | XMS_ITS | Continuity of Care Document ---
Author Name Unknown Organization [facility] Address [address] [address]- Care Team Providers Care Form Stripper Name Role Phone Radha Ospina NP Primary Care Physician Encounter [facility] Date(s): 03/28/19 - 05/31/[address] [address]- [place] Attending Physician: Marlon Garland MD Admitting Physician: Marlon Garland MD Referring Physician: Radha Ospina NP Allergies, [...] Vaccine (oldterm) 99 Scotty rded 1Result Comment: [id number] 2Result Comment: [id number] 3Result Comment: [03/17/19 Unchart] entered in error Medications escitalopram 20 mg oral tablet 1 tablet [...] Effective Dates Status Health Status Inform ant Depression(Confirmed) Active Asthma, exercise induced(Confirmed) Active ARIANNA [...]
--- OUTSIDE RECORDS SUMMARY | 2022-12-10 07:27 | XMS_ITS | Continuity of Care Document ---
Author Name Unknown Organization [facility] Address [address] [place] [address]- Care Team Providers Care Engineering Group Manager Name Role Phone Kaitlyn Jean NP Primary Care Physician [phone] [facility] Date(s): 10/21/20 - 11/20/20 [facility] Adult [address] [place] [address]- Allergies, Adverse Reactions, Alerts Substance Reaction Severity Status NKA Active Immunizations Given and Recorded Vaccine Date Status Refusal Reason SARS-CoV-2 (COVID-19) mRNA-4713 vaccine 10/09/20 R ecorded tetanus/diphtheria/pertussis, acel(Tdap) 1 [...] [facility]# [id number] 2Result Comment: [facility]-[id number] 3Result Comment: [id number] 4Result Comment: [03/17/19 Unchart] entered in error Medications Nexplanon 68 mg subcutaneous implant 1 each = 68 mg, Subcutaneous Infusion, Once, 0 Refills, Maintenance, 03/17/19 9:07:00 EDT Start Date: 03/17/19 Status: Ordered PARoxetine 10 mg oral tablet 10 mg, 1, tablet, By Mouth, Daily, # 14 tablet, Refills 0, Tot. Refills 0, Maintenance, 10/18/20 15:30:00 EDT, Route to Pharmacy Electronically, [facility], Partial fill upon patient request if the prescription is for a schedule II opioid d... Start Date: 10/18/20 Stop Date: 11/01/20 Status: Ordered ProAir HFA 90 mcg/inh inhalation aerosol with adapter 90 mcg, 1, puffs, Inhalation, Every 4 hours, PRN, # 1 each, Refills 3, Tot. Refills 3, Maintenance,07/30/20 9:34:00 EST, Inhaler, Route to Pharmacy Electronically, [id number], [facility], 165.2, cm, 07/02/20 14:16... Start [...]
--- OUTSIDE RECORDS SUMMARY | 2022-12-10 07:27 | XMS_ITS | Continuity of Care Document ---
Author Name Unknown Organization [facility] Address [address] [place] [address]- Care Team Providers Care Traffic Administrator Name Role Phone Kaitlyn Jean NP Primary Care Physician [place] [facility](s): 10/14/20 - 11/13/20 [facility] Adult [address] [place] [address]- Allergies, Adverse Reactions, Alerts Substance Reaction Severity [...] Vaccine (oldterm) 99 Scotty rded 1Result Comment: [facility]# [id number] 2Result Comment: [facility]-[id number] 3Result Comment: [id number] 4Result Comment: [03/17/19 Unchart] entered in error Medications Nexplanon 68 mg subcutaneous implant 1 each = 68 mg, Subcutaneous Infusion, Once, 0 Refills, Maintenance, 03/17/19 9:07:00 EDT Start Date: 03/17/19 Status: Ordered PARoxetine 10 mg oral tablet 10 mg, 1, tablet, By Mouth, Daily, # 14 tablet, Refills 0, Tot. Refills 0, Maintenance, 10/18/20 15:30:00 EDT, Route to Pharmacy Electronically, [facility], Partial fill upon patient request if the prescription is for a schedule II opioid d... Start Date: 10/18/20 Stop Date: 11/01/20 Status: Ordered ProAir HFA 90 mcg/inh inhalation aerosol with adapter 90 mcg, 1, puffs, Inhalation, Every 4 hours, PRN, # 1 each, Refills 3, Tot. Refills 3, Maintenance,07/30/20 9:34:00 EST, Inhaler, Route to Pharmacy Electronically, [id number], [facility]278, 165.2, cm, 07/02/20 14:16... [...]
--- OUTSIDE RECORDS SUMMARY | 2022-12-10 07:28 | XMS_ITS | Continuity of Care Document ---
Author Name Unknown Organization [facility] Address [address] [place] [address] samuel, [address] [place] [address]- Care Team Providers Care Transportation Dispatcher Name Role Phone Not on Staff, PCP Primary Care Physician Unavail able [facility] Date(s): 11/21/19 - 11/28/19 [facility] [address] [place] [address] Drive, [address] [place] [address]- [facility] Attending Physician: Not on Staff, Attending MD [...] rded 1Result Comment: [facility]-[id number] 2Result Comment: [id number] 3Result Comment: [03/17/19 Unchart] entered in error [...] oldest [Reference Range]: 1 Height 165.2 cm (11/20/19 3:04 PM) Weight 89.9 kg (11/20/19 3:04 PM) Body Mass Index [18.5-24.99] 32.94 *>HHI* (11/20/19 3:04 PM) Social History Social History Type Response Smoking Status Former smoker, quit more than 30 days ago; Smokeless tobacco use: vaping; Type: Cigarettes; Previous treatment: None; Started at age: 17; Stopped at age: 18; entered on: 03/17/19 Sex
--- OUTSIDE RECORDS SUMMARY | 2022-12-10 07:28 | XMS_ITS | Continuity of Care Document ---
Author Name Unknown Organization [facility] Address [address] [place] [address]- Care Team Providers Care Chair Car Attendant Name Role Phone Damien BAEZ, Beatris Olson Primary Care Physician [facility] Date(s): 03/09/22 - 04/08/22 [facility] [address] [place] [address] Allergies, Adverse Reactions, Alerts No Known Allergies Immunizations Given and Recorded Vaccine Date Status Refusal Reason SARS-CoV-2 (COVID-19) mRNA-4887 vaccine 10/09/20 R ecorded tetanus/diphtheria/pertussis, acel(Tdap) 1 [...] Comment: [facility]# [id number] 2Result Comment: [facility]-[id number] 3Result Comment: [id number] 4Result Comment: [03/17/19 Unchart] entered in error [...] 9:34:00 EST, Inhaler, Route to Pharmacy Electronically, [id number], 165.2, cm, 07/02/20 14:16... Start [...] Personnel Name: Damien BAEZ, Beatris Olson Position: [facility] Outreach Member Role: PCP Address: Address: [address] [place] [address]- Care Team Related Persons Name: NADEEM ROBERTSON Address: [address] [place] [address] Name: MARISELA AMEZQUITA Address: [address] [place] [address] Name: NASIM FRYE Address: [employer] Address: [address] [place] [address] Name: KALEB FRYE Address: [address] [place] [address]
--- OUTSIDE RECORDS SUMMARY | 2022-12-10 07:28 | XMS_ITS | Continuity of Care Document ---
Author Name Unknown Organization [facility] Address [address] [place] [address]- Care Team Providers Care Granulizing Machine Operator Name Role Phone Kaitlyn Jean NP Primary Care Physician [facility] Date(s): 12/15/19 - 01/14/20 [facility] Adult [address] [place] [address]- [facility] Allergies, Adverse Reactions, Alerts Substance Reaction Severity [...] (oldterm) 99 Scotty rded 1Result Comment: [facility]-[id number] 2Result Comment: [id number] 3Result Comment: [03/17/19 Unchart] entered in error Medications Lexapro 20 mg oral tablet 1 tablet = 20 mg, By Mouth, Daily, # 30 tablet, 0 Refills, Maintenance, 04/17/19 14:25:47 EST, Tablet Start Date: 04/17/19 Status: Ordered mupirocin 2% topical ointment 1 application, Topically, 3 times a day, # 15 Gm, 0 Refills, Acute 04/09/20 11:15:00 EST, 12/25/19 11:02:00 EDT, Ointment, [facility], 1 application Topically [...]
--- OUTSIDE RECORDS SUMMARY | 2022-12-10 07:28 | XMS_ITS | Continuity of Care Document ---
Author Name Unknown Organization [facility] Address [address] [place], [place] [address]nila baker, [address] [place] [address]- Care Team Providers Care Machine Marker Name Role Phone Damien BAEZ, Beatris Olson Primary Care Physician [facility] Date(s): 12/30/20 - 01/29/21 [facility] [address] [place] [address] Drive, [address] [place], [place] [address] Allergies, Adverse Reactions, Alerts Substance Reaction Severity Status NKA Active Immunizations Given and Recorded Vaccine Date Status Refusal Reason SARS-CoV-2 (COVID-19) mRNA-6119 vaccine 10/09/20 R ecorded tetanus/diphtheria/pertussis, acel(Tdap) 1 [...] Scotty rded 1Result Comment: [facility]# [id number] 2Result Comment: [facility]-[id number] 3Result Comment: [id number] 4Result Comment: [03/17/19 Unchart] entered in error [...] [facility], Partial fill upon patient request if the prescription is for a schedule II opioid d... Start Date: 10/18/20 Stop Date: 11/01/20 Status: Ordered ProAir HFA 90 mcg/inh inhalation aerosol with adapter 90 mcg, 1, puffs, Inhalation, Every 4 hours, PRN, # 1 each, Refills 3, Tot. Refills 3, Maintenance,07/30/20 9:34:00 EST, Inhaler, Route to Pharmacy Electronically, [id number], [facility] [...]
--- OUTSIDE RECORDS SUMMARY | 2022-12-10 07:28 | XMS_ITS | Continuity of Care Document ---
Author Name Unknown Organization [facility] Address [address] [place] [address]- Care Team Providers Care Flatwork Presser Name Role Phone Miranda BAEZ, Kaitlyn Primary Care Physician [facility] Date(s): 09/23/19 - 01/21/20 [facility] Adult [address] [place] [address]- [facility] Attending Physician: Radha Ospina NP Referring Physician: Flori OSBORNE, Kirill Carlos Allergies, Adverse Reactions, Alerts Substance Reaction Severity [...] Vaccine (oldterm) 99 Scotty rded 1Result Comment: [facility]-[id number] 2Result Comment: [id number] 3Result Comment: [03/17/19 Unchart] entered in error Medications Lexapro 20 mg oral tablet 1 tablet = 20 mg, By Mouth, Daily, # 30 tablet, 0 Refills, Maintenance, 04/17/19 14:25:47 EST, Tablet Start Date: 04/17/19 Status: Ordered mupirocin 2% topical ointment 1 application, Topically, 3 times a day, # 15 Gm, 0 Refills, Acute 04/09/20 11:15:00 EST, 12/25/19 11:02:00 EDT, Ointment, [facility], 1 application Topically 3 [...]
--- OUTSIDE RECORDS SUMMARY | 2022-12-10 07:28 | XMS_ITS | Continuity of Care Document ---
Author Name Unknown Organization [facility] Address [address] [place] [address]- Care Team Providers Care Supervisor Stave Finishing Name Role Phone Kaitlyn Jean NP Primary Care Physician [phone] [place] [facility] Date(s): 10/16/20 - 11/17/20 [facility] Adult [address] [place] [address]- Attending Physician: Not on Staff, Attending MD Allergies, Adverse Reactions, Alerts Substance Reaction Severity Status NKA Active Immunizations Given and Recorded Vaccine Date Status Refusal Reason SARS-CoV-2 (COVID-19) mRNA-3790 vaccine 10/09/20 R ecorded tetanus/diphtheria/pertussis, acel(Tdap) 1 [...] (oldterm) 99 Scotty rded 1Result Comment: [facility]# [id number] 2Result Comment: [id number] 3Result Comment: [id number] 4Result Comment: [03/17/19 Unchart] entered in error Medications Nexplanon 68 mg subcutaneous implant 1 each = 68 mg, Subcutaneous Infusion, Once, 0 Refills, Maintenance, 03/17/19 9:07:00 EDT Start Date: 03/17/19 Status: Ordered PARoxetine 10 mg oral tablet 10 mg, 1, tablet, By Mouth, Daily, # 14 tablet, Refills 0, Tot. Refills 0, Maintenance, 10/18/20 15:30:00 EDT, Route to Pharmacy Electronically, [facility], Partial fill upon patient request if the prescription is for a schedule II opioid d... Start Date: 10/18/20 Stop Date: 11/01/20 Status: Ordered ProAir HFA 90 mcg/inh inhalation aerosol with adapter 90 mcg, 1, puffs, Inhalation, Every 4 hours, PRN, # 1 each, Refills 3, Tot. Refills 3, Maintenance,07/30/20 9:34:00 EST, Inhaler, Route to Pharmacy Electronically, [id number], [facility], 165.2, cm, 07/02/20 [...]
--- OUTSIDE RECORDS SUMMARY | 2022-12-10 07:28 | XMS_ITS | Continuity of Care Document ---
Author Name Unknown Organization [facility] Ortiz lt Address [address] [place] [address]- Care Team Providers Care High School Science Teacher Name Role Phone Kaitlyn Jean NP Primary Care Physician Encounter [facility] Date(s): 10/25/20 - 11/24/20 [facility] Adult [address] [place] [address]- Allergies, Adverse Reactions, Alerts Substance Reaction Severity Status NKA Active Immunizations Given and Recorded Vaccine Date Status Refusal Reason SARS-CoV-2 (COVID-19) mRNA-7719 vaccine 10/09/20 R ecorded tetanus/diphtheria/pertussis, acel(Tdap) 1 [...] Vaccine (oldterm) 99 Scotty rded 1Result Comment: [facility]# [id number] 2Result Comment: [facility]-[id number] 3Result Comment: [id number] 4Result Comment: [03/17/19 Unchart] entered in error Medications Nexplanon 68 mg subcutaneous implant 1 each = 68 mg, Subcutaneous Infusion, Once, 0 Refills, Maintenance, 03/17/19 9:07:00 EDT Start Date: 03/17/19 Status: Ordered PARoxetine 10 mg oral tablet 10 mg, 1, tablet, By Mouth, Daily, # 14 tablet, Refills 0, Tot. Refills 0, Maintenance, 10/18/20 15:30:00 EDT, Route to Pharmacy Electronically, [facility], Partial fill upon patient request if the prescription is for a schedule II opioid d... Start Date: 10/18/20 Stop Date: 11/01/20 Status: Ordered ProAir HFA 90 mcg/inh inhalation aerosol with adapter 90 mcg, 1, puffs, Inhalation, Every 4 hours, PRN, # 1 each, Refills 3, Tot. Refills 3, Maintenance,07/30/20 9:34:00 EST, Inhaler, Route to Pharmacy Electronically, [id number], [facility], 165.2, cm, 07/02/20 [...]
--- OUTSIDE RECORDS SUMMARY | 2022-12-10 07:28 | XMS_ITS | Continuity of Care Document ---
Author Name Unknown Organization [facility] Ort[facility] Address [address] [place] [address]- Care Team Providers Care District Extension Service Agent Name Role Phone Damien BAEZ, Beatris Olson Primary Care Physician [facility] Date(s): 12/19/20 - 01/18/21 [facility] Adult [address] [place] [address]- Allergies, Adverse Reactions, Alerts Substance Reaction Severity [...] Vaccine (oldterm) 99 Scotty rded 1Result Comment: [facility]# [id number] 2Result Comment: [facility]-[id number] 3Result Comment: [id number] 4Result Comment: [03/17/19 Unchart] entered in error Medications Nexplanon 68 mg subcutaneous implant 1 each = 68 mg, Subcutaneous Infusion, Once, 0 Refills, Maintenance, 03/17/19 9:07:00 EDT Start Date: 03/17/19 Status: Ordered PARoxetine 10 mg oral tablet 10 mg, 1, tablet, By Mouth, Daily, # 14 tablet, Refills 0, Tot. Refills 0, Maintenance, 10/18/20 15:30:00 EDT, Route to Pharmacy Electronically, [facility], Partial fill upon patient request if the prescription is for a schedule II opioid d... Start Date: 10/18/20 Stop Date: 11/01/20 Status: Ordered ProAir HFA 90 mcg/inh inhalation aerosol with adapter 90 mcg, 1, puffs, Inhalation, Every 4 hours, PRN, # 1 each, Refills 3, Tot. Refills 3, Maintenance,07/30/20 9:34:00 EST, Inhaler, Route to Pharmacy Electronically, [id number], [facility], 165.2, cm, 07/02/20 14:16... [...]
--- OUTSIDE RECORDS SUMMARY | 2022-12-10 07:28 | XMS_ITS | Continuity of Care Document ---
Author Name Unknown Organization [facility] Ort[facility] lt Address [address] [place] [address]- Care Team Providers Care Strap Making Machine Operator Name Role Phone Not on Staff, PCP Primary Care Physician Unavail able [facility] Date[facility]s): 11/07/19 - 11/14/19 [facility] Adult [address] [place] [address]- [facility] Encounter Diagnosis Knee pain, bilateral(Discharge Diagnosis) - 11/07/19 Attending Physician: Miranda GAME PRESERVE MANAGERKaitlyn Allergies, Adverse Reactions, Alerts Substance Reaction Severity [...] Scotty rded 1Result Comment: [id number] 2Result Comment: [id number] 3Result Comment: [03/17/19 Unchart] entered in error [...] Dates Health Status Cl inical Service Informant Knee pain, bilateral Discharge Diagnosis 11/07/19 Vital Signs Most recent to oldest [Reference Range]: 1 Height 165.2 cm (11/07/19 2:37 PM) Social History Social History Type Response Smoking Status Former smoker, quit more than 30 days ago; Smokeless tobacco use: vaping; Type: Cigarettes; Previous treatment: None; Started at age: 17; Stopped at age: 18; entered on: 03/17/19 Sex
--- OUTSIDE RECORDS SUMMARY | 2022-12-10 07:28 | XMS_ITS | Continuity of Care Document ---
Author Name Unknown Organization [facility] Ortiz lt Address [address] [place] [address]- Care Team Providers Care Offc Spec Name Role Phone Kaitlyn Jean NP Primary Care Physician [facility] Date(s): 12/25/19 - 01/24/20 [facility] Adult [address] [place] [address]- [facility] Allergies, Adverse Reactions, Alerts Substance Reaction [...] (oldterm) 99 Scotty rded 1Result Comment: [facility]-[id number] 2Result Comment: [id number] 3Result Comment: [03/17/19 Unchart] entered in error Medications Lexapro 20 mg oral tablet 1 tablet = 20 mg, By Mouth, Daily, # 30 tablet, 0 Refills, Maintenance, 04/17/19 14:25:47 EST, Tablet Start Date: 04/17/19 Status: Ordered mupirocin 2% topical ointment 1 application, Topically, 3 times a day, # 15 Gm, 0 Refills, Acute 04/09/20 11:15:00 EST, 12/25/19 11:02:00 EDT, Ointment, [facility], 1 application Topically 3 times [...] Active Depression(Confirmed) Active Asthma, exercise induced(Confirmed) Active AIRANNA (generalized anxiety disorder)(Confirmed) Active H/O constipation(Confirmed) Active [...]
--- OUTSIDE RECORDS SUMMARY | 2022-12-10 07:28 | XMS_ITS | Continuity of Care Document ---
Author Name Unknown Organization [facility] Address [address] [place] [address]- Care Team Providers Care Tomato Pulper Operator Name Role Phone Damien BAEZ, Beatris Olson Primary Care Physician [facility] Date(s): 02/03/22 - 03/05/22 [facility] [address] [place] [id number] Allergies, Adverse Reactions, Alerts No Known Allergies Immunizations Given and Recorded Vaccine Date Status Refusal Reason SARS-CoV-2 (COVID-19) mRNA-6068 vaccine 10/09/20 R ecorded tetanus/diphtheria/pertussis, acel(Tdap) 1 [...] (oldterm) 99 Scotty rded 1Result Comment: [facility]# [id number] 2Result Comment: [facility]-[id number] 3Result Comment: [id number] 4Result Comment: [03/17/19 Unchart] entered in error [...] 10/18/20 15:30:00 EDT, Route to Pharmacy Electronically, [facility], Partial fill upon patient request if the prescription is for a schedule II opioid d... Start Date: 10/18/20 Stop Date: 11/01/20 Status: Ordered ProAir HFA 90 mcg/inh inhalation aerosol with adapter 90 mcg, 1, puffs, Inhalation, Every 4 hours, PRN, # 1 each, Refills 3, Tot. Refills 3, Maintenance,07/30/20 9:34:00 EST, Inhaler, Route to Pharmacy Electronically, [id number], [facility] 5278, 165.2, cm, 07/02/20 14:16... Start Date: 07/30/20 Status: Ordered verapamil 40 mg oral tablet 1 tablet = 40 mg, By Mouth, Daily at bedtime, # 30 tablet, 5 Refills, Maintenance, 02/13/21 13:45:00 EDT, [id number], Partial fill upon patient request if the [...] Name: Damien BAEZ, Beatris Olson Address: Address: [address] [place] [id number]
--- OUTSIDE RECORDS SUMMARY | 2022-12-10 07:28 | XMS_ITS | Continuity of Care Document ---
Author Name Unknown Organization [facility] Address [address] [place] [address]- Care Team Providers Care Belt Conveyor Drier Name Role Phone Damien BAEZ, Beatris Olson Primary Care Physician [facility] Date(s): 02/23/22 - 03/25/22 [facility] [address] [place] [id number] Allergies, Adverse Reactions, Alerts No Known Allergies [...] Scotty rded 1Result Comment: [facility]# [id number] 2Result Comment: [facility]-[id number] 3Result Comment: [id number] 4Result Comment: [03/17/19 Unchart] entered in error [...] 9:34:00 EST, Inhaler, Route to Pharmacy Electronically, [id number], 165.2, cm, 07/02/20 14:16... Start [...] Personnel Name: Beatris Quezada NP Address: Address: [address] [place] [address]
--- OUTSIDE RECORDS SUMMARY | 2022-12-10 07:28 | XMS_ITS | Continuity of Care Document ---
Author Name Unknown Organization [facility] Ortiz lt Address [address] [place] [address]- Care Team Providers Care Marketing Co Op Name Role Phone Kaitlyn Jean NP Primary Care Physician [facility] Date(s): 12/15/19 - 01/14/20 [facility] Adult [address] [place] [address]- [facility] Allergies, Adverse Reactions, Alerts Substance Reaction Severity [...] 1Result Comment: [facility]-[id number] 2Result Comment: [id number] 3Result Comment: [03/17/19 Unchart] entered in error Medications Lexapro 20 mg oral tablet 1 tablet = 20 mg, By Mouth, Daily, # 30 tablet, 0 Refills, Maintenance, 04/17/19 14:25:47 EST, Tablet Start Date: 04/17/19 Status: Ordered mupirocin 2% topical ointment 1 application, Topically, 3 times a day, # 15 Gm, 0 Refills, Acute 04/09/20 11:15:00 EST, 12/25/19 11:02:00 EDT, Ointment, [facility], 1 application Topically [...]
--- OUTSIDE RECORDS SUMMARY | 2022-12-10 07:28 | XMS_ITS | Continuity of Care Document ---
Author Name Unknown Organization [facility] Ortiz Address [address] [place] [address]- Care Team Providers Care Head Stock Operator Name Role Phone Bhavesh BAEZ, Radha Wallace Primary Care Physician [phone] Encounter [facility] Date(s): 06/01/19 - 06/08/19 [facility] Adult [address] [place] [address]- [facility] Encounter Diagnosis Acne(Discharge Diagnosis) - 06/01/19 Headache(Discharge Diagnosis) - 06/01/19 Attending Physician: Kaitlyn Jean NP Referring Physician: Kirill Ruby MD Allergies, Adverse Reactions, [...] (oldterm) 99 Scotty rded 1Result Comment: [facility]-[id number] 2Result Comment: [id number] 3Result Comment: [03/17/19 Unchart] entered in error [...] BMI 30-34.9(Confirmed) Active Preventative health care(Confirmed) Active Diagnosis Diagnosis Type Effective Dates Health Status Clini luis Service Informant Acne Discharge Diagnosis 06/01/19 Headache Discharge Diagnosis 06/01/19 Vital Signs Most recent to oldest [Reference Range]: 1 Height 165.2 cm (06/01/19 9:03 AM) Weight 89.7 kg (06/01/19 9:03 AM) Oxygen Saturation [94-100 %] 98 % (06/01/19 9:03 AM) Pulse Rate [55-90 bpm] 9 bpm *L* (06/01/19 9:03 AM) Body Mass Index [18.5-24.99] 32.87 *>HHI* (06/01/19 9:03 AM) Blood Pressure [90-138/55-84 mm Hg] 98/7 0mm Hg (06/01/19 9:03 AM) Temperature [96.8-100.4 DegF] 98.5 DegF (06/01/19 9:03 AM) Blood pressure sites Arm, right (06/01/19 9:03 AM) Social History Social History Type Response Smoking Status Former smoker, quit more than 30 days ago; Smokeless tobacco use: vaping; Type: Cigarettes; Previous treatment: None; Started at age: 17; Stopped at age: 18; entered on: 03/17/19 Sex
--- OUTSIDE RECORDS SUMMARY | 2022-12-10 07:28 | XMS_ITS | Continuity of Care Document ---
Author Name Unknown Organization [facility] Ortiz lt Address [address] [place] [address]- Care Team Providers Care Pourer Crane Ladle Name Role Phone Kaitlyn Jean NP Primary Care Physician [facility] Date(s): 07/29/20 - 08/28/20 [facility] Adult [address] [place] [address]- Allergies, Adverse Reactions, Alerts Substance Reaction Severity [...] (oldterm) 99 Scotty rded 1Result Comment: [facility]-[id number] 2Result Comment: [id number] 3Result Comment: [03/17/19 Unchart] entered in error [...] 9:34:00 EST, Inhaler, Route to Pharmacy Electronically, [id number], [facility], 165.2, cm, 07/02/20 14:16... Start Date: 3/2/21 Status: Ordered Problem List Condition Effective Dates [...]
--- OUTSIDE RECORDS SUMMARY | 2022-12-10 07:28 | XMS_ITS | Continuity of Care Document ---
Author Name Unknown Organization [facility] Address [address] [place] [address] samuel, [address] [place] [address]- Care Team Providers Care Orthotics Prosthetics Technician Name Role Phone Kaitlyn Jean NP Primary Care Physician [phone] [facility]counter [facility] Date(s): 11/11/20 - 12/11/20 [facility] [address] [place] [address] Drive, [address] [place] [address]- Attending Physician: Dinh Osorio Admitting Physician: AdmtrDinh Referring Physician: Admtr, Ar8 Allergies, Adverse Reactions, Alerts Substance Reaction Severity Status NKA Active Immunizations Given and Recorded Vaccine Date Status Refusal Reason SARS-CoV-2 (COVID-19) mRNA-1275 vaccine 10/09/20 R ecorded tetanus/diphtheria/pertussis, acel(Tdap) 1 [...] Vaccine (oldterm) 99 Scotty rded 1Result Comment: [facility]# [id number] 2Result Comment: [facility]-[id number] 3Result Comment: [id number] 4Result Comment: [03/17/19 Unchart] entered in error Medications Nexplanon 68 mg subcutaneous implant 1 each = 68 mg, Subcutaneous Infusion, Once, 0 Refills, Maintenance, 03/17/19 9:07:00 EDT Start Date: 03/17/19 Status: Ordered PARoxetine 10 mg oral tablet 10 mg, 1, tablet, By Mouth, Daily, # 14 tablet, Refills 0, Tot. Refills 0, Maintenance, 10/18/20 15:30:00 EDT, Route to Pharmacy Electronically, [facility], Partial fill upon patient request if the prescription is for a schedule II opioid d... Start Date: 10/18/20 Stop Date: 11/01/20 Status: Ordered ProAir HFA 90 mcg/inh inhalation aerosol with adapter 90 mcg, 1, puffs, Inhalation, Every 4 hours, PRN, # 1 each, Refills 3, Tot. Refills 3, Maintenance,07/30/20 9:34:00 EST, Inhaler, Route to Pharmacy Electronically, [id number], [facility], 165.2, cm, 07/02/20 14:16... Start [...]
--- OUTSIDE RECORDS SUMMARY | 2022-12-10 07:28 | XMS_ITS | Continuity of Care Document ---
Author Name Unknown Organization [facility] Address Unknown Care Team Providers Care Medical Terminologist Name Role Phone Damien BAEZ, Beatris Olson Primary Care Physician [facility] Date(s): 06/30/21 - 07/30/21 [facility] Attending Physician: Dinh Osorio Admitting Physician: Dinh Osorio Referring Physician: Dinh Osorio Allergies, Adverse Reactions, Alerts No Known Allergies Immunizations Given and Recorded Vaccine Date Status Refusal Reason SARS-CoV-2 (COVID-19) mRNA-6576 vaccine 10/09/20 R ecorded tetanus/diphtheria/pertussis, acel(Tdap) 1 [...] Conjugate Vaccine 01/18/12 Recorded Human Papillomavirus Vaccine 2/22/13 Recorded Human Papillomavirus Vaccine 03/21/12 Recorded Human [...] Vaccine (oldterm) 99 Scotty rded 1Result Comment: [facility]# [id number] 2Result Comment: [facility]-[id number] 3Result Comment: [id number] 4Result Comment: [03/17/19 Unchart] entered in error Medications magnesium oxide 400 mg oral tablet 1 tablet = 400 mg, By Mouth, Daily, for 30 days, take with meal, # 30 tablet, 5 Refills, Acute 08/12/21 13:44:00 EDT, 02/13/21 13:44:00 EDT, Tablet, [id number], Partial fill upon patient request if the [...] to Pharmacy Electronically, [facility], Partial fill upon patient request if the prescription is for a schedule II opioid d... Start Date: 10/18/20 Stop Date: 11/01/20 Status: Ordered ProAir HFA 90 mcg/inh inhalation aerosol with adapter 90 mcg, 1, puffs, Inhalation, Every 4 hours, PRN, # 1 each, Refills 3, Tot. Refills 3, Maintenance,07/30/20 9:34:00 EST, Inhaler, Route to Pharmacy Electronically, [id number], [facility], 165.2, cm, 07/02/20 14:16... Start Date: 07/30/20 Status: Ordered verapamil 40 mg oral tablet 1 tablet = 40 mg, By Mouth, Daily at bedtime, # 30 tablet, 5 Refills, Maintenance, 02/13/21 13:45:00 EDT[id number], Partial fill upon patient request if the [...]
--- OUTSIDE RECORDS SUMMARY | 2022-12-10 07:28 | XMS_ITS | Continuity of Care Document ---
Author Name Unknown Organization [facility] Address [address] [place] [address] samuel, [address] [place] [address]- Care Team Providers Care Educational Technology Coordinator Name Role Phone Kaitlyn Jean NP Primary Care Physician [phone] [facility]s): 11/11/20 - 12/11/20 [facility] [address] [place] [address] Drive, [address] [place] [address]- Allergies, Adverse Reactions, Alerts Substance Reaction Severity [...] Vaccine (oldterm) 99 Scotty rded 1Result Comment: [facility]# [id number] 2Result Comment: [facility]-[id number] 3Result Comment: [id number] 4Result Comment: [03/17/19 Unchart] entered in error Medications Nexplanon 68 mg subcutaneous implant 1 each = 68 mg, Subcutaneous Infusion, Once, 0 Refills, Maintenance, 03/17/19 9:07:00 EDT Start Date: 03/17/19 Status: Ordered PARoxetine 10 mg oral tablet 10 mg, 1, tablet, By Mouth, Daily, # 14 tablet, Refills 0, Tot. Refills 0, Maintenance, 10/18/20 15:30:00 EDT, Route to Pharmacy Electronically, [facility], Partial fill upon patient request if the prescription is for a schedule II opioid d... Start Date: 10/18/20 Stop Date: 11/01/20 Status: Ordered ProAir HFA 90 mcg/inh inhalation aerosol with adapter 90 mcg, 1, puffs, Inhalation, Every 4 hours, PRN, # 1 each, Refills 3, Tot. Refills 3, Maintenance,07/30/20 9:34:00 EST, Inhaler, Route to Pharmacy Electronically, [id number], [facility], 165.2, cm, 07/02/20 [...]
--- OUTSIDE RECORDS SUMMARY | 2022-12-10 07:28 | XMS_ITS | Continuity of Care Document ---
Author Name Unknown Organization [facility] ter Address [address] [place] [address]- Care Team Providers Care Long Lines Operator Name Role Phone Damien BAEZ, Beatris Olson Primary Care Physician [facility] Date(s): 03/19/22 - 03/22/[address] [address]- Discharge Disposition: A-D/C Home Attending Physician: Tatiana Flores MD Admitting Physician: Tatiana Flores MD Referring Physician: Tatiana Flores MD Allergies, Adverse Reactions, Alerts No Known Allergies Immunizations Given and Recorded Vaccine Date Status Refusal Reason SARS-CoV-2 (COVID-19) qSBB-4230 vaccine 10/09/20 R ecorded tetanus/diphtheria/pertussis, acel(Tdap) 1 [...] 1Result Comment: [facility]# [id number] 2Result Comment: [facility]-[id number] 3Result Comment: [id number] 4Result Comment: [03/17/19 Unchart] entered in error Medications Acetaminophen Tablet 650 mg, Tablet, By Mouth, Every 4 hours, PRN for Pain , Mild, (1-3), may give 325mg per patient preference and re-dose with 325mg within 4 hours, if needed. Patient should only receive a total of 650mg of Acetaminophen every 4 hours., Routine, 03/20... Start Date: 03/20/22 Stop Date: 03/22/22 Status: Discontinued aspirin 81 mg oral capsule See Instructions, [...] 9:34:00 EST, Inhaler, Route to Pharmacy Electronically, [id number], [facility], 165.2, cm, 07/02/20 [...] cyst Confirmed Active Umbilical discharge Confirmed Active Vital Signs Most recent to oldest [Reference Range]: 1 2 3 Height 162 cm (03/22/22 8:40 AM) 162 cm (03/22/22 12:00 AM) 162 cm (03/21/22 3:26 PM) Weight 101.31 kg (03/19/22 8:25 PM) Oxygen Saturation [94-100 %] 98 % (03/22/22 12:00 AM) 97 % (03/21/22 3:00 AM) 98 % (03/20/22 9:59 PM) Pulse Rate [55-90 bpm] 77 bpm (03/22/22 8:40 AM) 88 bpm (03/22/22 12:00 AM) 80 bpm (03/21/22 3:26 PM) Body Mass Index [18.5-24.99 kg/m2] 38.6 kg/m2 *>HHI* (03/19/22 8:25 PM) Blood Pressure [90-138/55-84 mm Hg] 124/81mm Hg (03/22/22 8:40 AM) 119/71mm Hg (03/22/22 12:00 AM) 110/61mm Hg (03/21/22 3:26 PM) Respiratory Rate [16-30 br/min] 17 br/min (03/22/22 8:40 AM) 17 br/min (03/22/22 12:00 AM) 18 br/min (03/21/22 8:51 PM) Temperature [96.8-100.4 DegF] 98.8 DegF (03/22/22 8:40 AM) 98.6 DegF (03/22/22 12:00 AM) 98.0 DegF (03/21/22 3:26 PM) Mode of Delivery (Oxygen) Room air (03/22/22 12:00 AM) Room air (03/21/22 3:00 AM) Room air (03/20/22 9:59 PM) Blood pressure sites Arm, right (03/22/22 8:40 AM) Arm, right (03/21/22 3:26 PM) Arm, right (03/21/22 9:00 AM) Temperature Route Oral (03/22/22 8:40 AM) Oral (03/22/22 12:00 AM) Oral (03/21/22 3:26 PM) Dry Weight 101.3 kg (03/19/22 8:25 PM) Weight Obtained Via Patient/family state d (03/19/22 8:25 PM) Social History Social History Type Response Smoking Status Former smoker, quit more than 30 days ago; Smokeless tobacco use: vaping; Type: Cigarettes; Previous treatment: None; Started at age: 17; Stopped at age: 18; entered on: 03/17/19 Sex Patient Care team information Personnel Name: Beatris Quezada NP Address: Address: [address] [place] [address]
--- OUTSIDE RECORDS SUMMARY | 2022-12-10 07:28 | XMS_ITS | Continuity of Care Document ---
Author Name Unknown Organization [facility] Address [address] [place] [address] ve [address] [place] [address]- Care Team Providers Care Heavy Antiarmor Weapons Infantryman Name Role Phone Kaitlyn Jean NP Primary Care Physician [facility] Date[facility]s): 07/02/20 - 08/01/[address] [place] [address]- Attending Physician: Dinh Osorio Admitting Physician: AdmDinh [...] Vaccine (oldterm) 99 Scotty rded 1Result Comment: [id number] 2Result Comment: [id number] 3Result Comment: [03/17/19 Unchart] entered in error [...] 9:34:00 EST, Inhaler, Route to Pharmacy Electronically, [id number], [facility], 165.2, cm, 07/02/20 14:16... [...]
--- OUTSIDE RECORDS SUMMARY | 2022-12-10 07:28 | XMS_ITS | Continuity of Care Document ---
Author Name Unknown Organization [facility] Address [address] [place] [address]- Care Team Providers Care Landscaper Name Role Phone Damien BAEZ, Beatris Olson Primary Care Physician [facility]): 12/26[facility]20 - 01/25/21 [facility] Adult [address] [place] [address]- Allergies, Adverse Reactions, Alerts Substance Reaction Severity Status NKA Active Immunizations Given and Recorded Vaccine Date Status Refusal Reason SARS-CoV-2 (COVID-19) mRNA-7013 vaccine 10/09/20 R ecorded tetanus/diphtheria/pertussis, acel(Tdap) 1 [...] 99 Scotty rded 1Result Comment: [facility]# [id number] 2Result Comment: [facility]-[id number] 3Result Comment: [id number] 4Result Comment: [03/17/19 Unchart] entered in error Medications Nexplanon 68 mg subcutaneous implant 1 each = 68 mg, Subcutaneous Infusion, Once, 0 Refills, Maintenance, 03/17/19 9:07:00 EDT Start Date: 03/17/19 Status: Ordered PARoxetine 10 mg oral tablet 10 mg, 1, tablet, By Mouth, Daily, # 14 tablet, Refills 0, Tot. Refills 0, Maintenance, 10/18/20 15:30:00 EDT, Route to Pharmacy Electronically, [facility], Partial fill upon patient request if the prescription is for a schedule II opioid d... Start Date: 10/18/20 Stop Date: 11/01/20 Status: Ordered ProAir HFA 90 mcg/inh inhalation aerosol with adapter 90 mcg, 1, puffs, Inhalation, Every 4 hours, PRN, # 1 each, Refills 3, Tot. Refills 3, Maintenance,07/30/20 9:34:00 EST, Inhaler, Route to Pharmacy Electronically, [id number], [facility], 165.2, cm, 07/02/20 14:16... Start [...]
--- OUTSIDE RECORDS SUMMARY | 2022-12-10 07:28 | XMS_ITS | Continuity of Care Document ---
Author Name Unknown Organization [facility] Address [address] [place] [address]- Care Team Providers Care Mold Cleaning And Storage Supervisor Name Role Phone Damien BAZE, Beatris Olson Primary Care Physician [facility] Date(s): 01/01/22 - 01/31/22 [facility] [address] [place] [id number] Allergies, Adverse Reactions, Alerts No Known Allergies Immunizations Given and Recorded Vaccine Date Status Refusal Reason SARS-CoV-2 (COVID-19) mRNA-0768 vaccine 10/09/20 R ecorded tetanus/diphtheria/pertussis, acel(Tdap) 1 [...] Scotty rded 1Result Comment: [facility]# [id number] 2Result Comment: [facility]-[id number] 3Result Comment: [id number] 4Result Comment: [03/17/19 Unchart] entered in error [...] 10/18/20 15:30:00 EDT, Route to Pharmacy Electronically, [facility], Partial fill upon patient request if the prescription is for a schedule II opioid d... Start Date: 10/18/20 Stop Date: 11/01/20 Status: Ordered ProAir HFA 90 mcg/inh inhalation aerosol with adapter 90 mcg, 1, puffs, Inhalation, Every 4 hours, PRN, # 1 each, Refills 3, Tot. Refills 3, Maintenance,07/30/20 9:34:00 EST, Inhaler, Route to Pharmacy Electronically, [id number], [facility], 165.2, cm, 07/02/20 14:16... Start Date: 07/30/20 Status: Ordered verapamil 40 mg oral tablet 1 tablet = 40 mg, By Mouth, Daily at bedtime, # 30 tablet, 5 Refills, Maintenance, 02/13/21 13:45:00 EDT, [facility][id number], Partial fill upon patient request if the [...] Personnel Name: Damien BAEZ, Beatris Olson Address: [address] [place] [id number] [[email or web address]]
--- OUTSIDE RECORDS SUMMARY | 2022-12-10 07:28 | XMS_ITS | Continuity of Care Document ---
Author Name Unknown Organization [facility] Address [address] [place] [address]- Care Team Providers Care Drug Safety Data Management Specialist Name Role Phone Kaitlyn Jean NP Primary Care Physician [facility] Date[facility]s): 12/26/19 - 01/25/20 [facility] Adult [address] [place] [address]- [facility] Allergies, Adverse Reactions, Alerts Substance Reaction Severity [...] Vaccine (oldterm) 99 Scotty rded 1Result Comment: [facility]-[id number] 2Result Comment: [id number] 3Result Comment: [03/17/19 Unchart] entered in error Medications Lexapro 20 mg oral tablet 1 tablet = 20 mg, By Mouth, Daily, # 30 tablet, 0 Refills, Maintenance, 04/17/19 14:25:47 EST, Tablet Start Date: 04/17/19 Status: Ordered mupirocin 2% topical ointment 1 application, Topically, 3 times a day, # 15 Gm, 0 Refills, Acute 04/09/20 11:15:00 EST, 12/25/19 11:02:00 EDT, Ointment, [facility], 1 application Topically 3 times [...]
--- OUTSIDE RECORDS SUMMARY | 2022-12-10 07:28 | XMS_ITS | Continuity of Care Document ---
Author Name Unknown Organization [facility] Address [address] [place] [address]- Care Team Providers Care Supervisor Border Department Name Role Phone Kaitlyn Jean NP Primary Care Physician [phone] [facility]s): 12/15/19 - 01/14/20 [facility] Adult [address] [place] [address]- [facility] Allergies, Adverse Reactions, Alerts Substance Reaction [...] Vaccine (oldterm) 99 Scotty rded 1Result Comment: [facility]-[id number] 2Result Comment: [id number] 3Result Comment: [03/17/19 Unchart] entered in error Medications Lexapro 20 mg oral tablet 1 tablet = 20 mg, By Mouth, Daily, # 30 tablet, 0 Refills, Maintenance, 04/17/19 14:25:47 EST, Tablet Start Date: 04/17/19 Status: Ordered mupirocin 2% topical ointment 1 application, Topically, 3 times a day, # 15 Gm, 0 Refills, Acute 04/09/20 11:15:00 EST, 12/25/19 11:02:00 EDT, Ointment, [facility], 1 application Topically [...]
--- OUTSIDE RECORDS SUMMARY | 2022-12-10 07:28 | XMS_ITS | Continuity of Care Document ---
Author Name Unknown Organization [facility] Address [address] [place] [address] [address] [place] [address]- Care Team Providers Care Industrial/Organizational Psychologist Name Role Phone Kaitlyn Jean NP Primary Care Physician [phone] [facility]counter [facility] Date(s): 04/30/20 - 05/07/[address] [place] [address]- Encounter Diagnosis Pilonidal disease(Discharge Diagnosis) - 04/30/20 Attending Physician: Margaret Khanna NP Referring Physician: Johnna Jarvis DO Allergies, Adverse Reactions, Alerts Substance Reaction Severity [...] Vaccine (oldterm) 99 Scotty rded 1Result Comment: [facility]-[id number] 2Result Comment: [id number] 3Result Comment: [03/17/19 Unchart] entered in error [...] Dates Health Status Cl inical Service Informant Pilonidal disease Discharge Diagnosis 04/30/20 Vital Signs Most recent to oldest [Reference Range]: 1 Height 165.2 cm (04/30/20 2:04 PM) Weight 92.9 kg (04/30/20 2:04 PM) Pulse Rate [55-90 bpm] 81 bpm (04/30/20 2:04 PM) Body Mass Index [18.5-24.99] 34.04 *>HHI* (04/30/20 2:04 PM) Blood Pressure [90-138/55-84 mm Hg] 126/ 79mm Hg (04/30/20 2:04 PM) Blood pressure sites Arm, right (04/30/20 2:04 PM) Weight Obtained Via Standing scale (04/30/20 2:04 PM) Social History Social History Type Response Smoking Status Former smoker, quit more than 30 days ago; Smokeless tobacco use: vaping; Type: Cigarettes; Previous treatment: None; Started at age: 17; Stopped at age: 18; entered on: 03/17/19 Sex
--- OUTSIDE RECORDS SUMMARY | 2022-12-10 07:28 | XMS_ITS | Continuity of Care Document ---
Author Name Unknown Organization [facility] Address Unknown Care Team Providers Care Grounds Crew Supervisor Name Role Phone Damien BAEZ, Beatris Olson Primary Care Physician [facility]s): 02/13/21 - 03/15/21 [facility] Attending Physician: Dinh Osorio Admitting Physician: Dinh Osorio Referring Physician: Dinh Osorio Allergies, Adverse Reactions, Alerts Substance Reaction Severity Status NKA Active Immunizations Given and Recorded Vaccine Date Status Refusal Reason SARS-CoV-2 (COVID-19) mRNA-5176 vaccine 10/09/20 R ecorded tetanus/diphtheria/pertussis, acel(Tdap) 1 [...] rded 1Result Comment: [facility]# [id number] 2Result Comment: [facility]-[id number] 3Result Comment: [id number] 4Result Comment: [03/17/19 Unchart] entered in error Medications magnesium oxide 400 mg oral tablet 1 tablet = 400 mg, By Mouth, Daily, for 30 days, take with meal, # 30 tablet, 5 Refills, Acute 08/12/21 13:44:00 EDT, 02/13/21 13:44:00 EDT, Tablet, [facility] #[id number], Partial fill upon patient request if the [...] EDT, Route to Pharmacy Electronically, [facility], Partial fill upon patient request if the prescription is for a schedule II opioid d... Start Date: 10/18/20 Stop Date: 11/01/20 Status: Ordered ProAir HFA 90 mcg/inh inhalation aerosol with adapter 90 mcg, 1, puffs, Inhalation, Every 4 hours, PRN, # 1 each, Refills 3, Tot. Refills 3, Maintenance,07/30/20 9:34:00 EST, Inhaler, Route to Pharmacy Electronically, [id number], [facility], 165.2, cm, 07/02/20 14:16... Start Date: 07/30/20 Status: Ordered verapamil 40 mg oral tablet 1 tablet = 40 mg, By Mouth, Daily at bedtime, # 30 tablet, 5 Refills, Maintenance, 02/13/21 13:45:00 EDT, [id number], Partial fill upon patient request if the [...]
--- OUTSIDE RECORDS SUMMARY | 2022-12-10 07:28 | XMS_ITS | Continuity of Care Document ---
Author Name Unknown Organization [facility] Address Unknown Care Team Providers Care Well Digger Name Role Phone Damien BAEZ, Beatris Whitney Primary Care Physician [facility] Date(s): 06/11/21 - 07/30/21 [facility] Attending Physician: Soraida Ureña MD Admitting Physician: Soraida Ureña MD Allergies, Adverse Reactions, Alerts No Known Allergies Immunizations Given and Recorded Vaccine Date Status Refusal Reason SARS-CoV-2 (COVID-19) [id number] vaccine 10/09/20 R ecorded tetanus/diphtheria/pertussis, acel(Tdap) 1 [...] Vaccine (oldterm) 99 Scotty rded 1Result Comment: [facility]# [id number] 2Result Comment: [id number] 3Result Comment: [id number] 4Result Comment: [03/17/19 Unchart] entered in error Medications magnesium oxide 400 mg oral tablet 1 tablet = 400 mg, By Mouth, Daily, for 30 days, take with meal, # 30 tablet, 5 Refills, Acute 08/12/21 13:44:00 EDT, 02/13/21 13:44:00 EDT, Tablet, [facility] #[id number], Partial fill upon patient request if the [...] tablet, Refills 0, Tot. Refills 0, Maintenance, 05/21/21 15:30:00 EDT, Route to Pharmacy Electronically, [facility], Partial fill upon patient request if the prescription is for a schedule II opioid d... Start Date: 10/18/20 Stop Date: 11/01/20 Status: Ordered ProAir HFA 90 mcg/inh inhalation aerosol with adapter 90 mcg, 1, puffs, Inhalation, Every 4 hours, PRN, # 1 each, Refills 3, Tot. Refills 3, Maintenance,07/30/20 9:34:00 EST, Inhaler, Route to Pharmacy Electronically, [id number], [facility], 165.2, cm, 07/02/20 14:16... Start Date: 07/30/20 Status: Ordered verapamil 40 mg oral tablet 1 tablet = 40 mg, By Mouth, Daily at bedtime, # 30 tablet, 5 Refills, Maintenance, 02/13/21 13:45:00 EDT, [id number], Partial fill upon patient request if the [...]
--- OUTSIDE RECORDS SUMMARY | 2022-12-10 07:29 | XMS_ITS | Continuity of Care Document ---
Author Name Unknown Organization [facility] Address [address] [place] [address]- Care Team Providers Care Wet Wash Assembler Name Role Phone Damien BAEZ, Beatris Olson Primary Care Physician [facility] Date(s): 01/19/22 - 02/18/22 [facility] [address] [place] [id number] Allergies, Adverse Reactions, Alerts No Known Allergies Immunizations Given and Recorded Vaccine Date Status Refusal Reason SARS-CoV-2 (COVID-19) mRNA-0766 vaccine 10/09/20 R ecorded tetanus/diphtheria/pertussis, acel(Tdap) 1 [...] Scotty rded 1Result Comment: [facility]# [id number] 2Result Comment: [id number] 3Result Comment: [id number] 4Result Comment: [03/17/19 Unchart] entered in error [...] 10/18/20 15:30:00 EDT, Route to Pharmacy Electronically, [facility], Partial fill upon patient request if the prescription is for a schedule II opioid d... Start Date: 10/18/20 Stop Date: 11/01/20 Status: Ordered ProAir HFA 90 mcg/inh inhalation aerosol with adapter 90 mcg, 1, puffs, Inhalation, Every 4 hours, PRN, # 1 each, Refills 3, Tot. Refills 3, Maintenance,07/30/20 9:34:00 EST, Inhaler, Route to Pharmacy Electronically, [id number], [facility], 165.2, cm, 07/02/20 14:16... Start Date: 07/30/20 Status: Ordered verapamil 40 mg oral tablet 1 tablet = 40 mg, By Mouth, Daily at bedtime, # 30 tablet, 5 Refills, Maintenance, 02/13/21 13:45:00 EDT, [facility] #[id number], Partial fill upon patient request if the [...] Personnel Name: Damien BAEZ, Beatris Olson Address: [address] [place] [id number] [[email or web address]]
--- OUTSIDE RECORDS SUMMARY | 2022-12-10 07:29 | XMS_ITS | Continuity of Care Document ---
Author Name Unknown Organization [facility] Address [address] [place] [address]- Care Team Providers Care Second Officer Name Role Phone Damien BAEZ, Beatris Olson Primary Care Physician [facility] Date[facility]s): 01/14/22 - 02/13/22 [facility] [address] [place] [id number] Attending Physician: Dinh Osorio Admitting Physician: AdmtrDinh Referring Physician: Admtr, Ar8 Allergies, Adverse Reactions, Alerts No Known Allergies [...] [facility]# [id number] 2Result Comment: [facility]-[id number] 3Result Comment: [id number] 4Result Comment: [03/17/19 Unchart] entered in error [...] 15:30:00 EDT, Route to Pharmacy Electronically, [facility], Partial fill upon patient request if the prescription is for a schedule II opioid d... Start Date: 10/18/20 Stop Date: 11/01/20 Status: Ordered ProAir HFA 90 mcg/inh inhalation aerosol with adapter 90 mcg, 1, puffs, Inhalation, Every 4 hours, PRN, # 1 each, Refills 3, Tot. Refills 3, Maintenance,07/30/20 9:34:00 EST, Inhaler, Route to Pharmacy Electronically, [id number], [facility], 165.2, cm, 07/02/20 14:16... Start Date: 07/30/20 Status: Ordered verapamil 40 mg oral tablet 1 tablet = 40 mg, By Mouth, Daily at bedtime, # 30 tablet, 5 Refills, Maintenance, 02/13/21 13:45:00 EDT, [facility] #[id number], Partial fill upon patient request if the [...] Personnel Name: Damien BAEZ, Beatris Olson Address: [address] [place] [address]
--- OUTSIDE RECORDS SUMMARY | 2022-12-10 07:29 | XMS_ITS | Continuity of Care Document ---
Author Name Unknown Organization [facility] Address [address] [place] [address] ve [address] [place] [address]- Care Team Providers Care Blood Tester Name Role Phone Katilyn Jean NP Primary Care Physician Encounter [facility] Date(s): 07/02/20 - 07/09/20 [facility] [address] [place] [address]- Encounter Diagnosis Pilonidal disease(Discharge Diagnosis) - 07/02/20 Attending Physician: Margaret Khanna NP Referring Physician: Kaitlyn Jean NP Allergies, [...] Vaccine (oldterm) 99 Scotty rded 1Result Comment: [id number] 2Result Comment: [id number] 3Result Comment: [03/17/19 Unchart] entered in error [...] inical Service Informant Pilonidal disease Discharge Diagnosis 07/02/20 Vital Signs Most recent to oldest [Reference Range]: 1 Height 165.2 cm (07/02/20 2:16 PM) Pulse Rate [55-90 bpm] 90 bpm (07/02/20 2:16 PM) Blood Pressure [90-138/55-84 mm Hg] 119/ 78mm Hg (07/02/20 2:16 PM) Temperature [96.8-100.4 DegF] 98.7 DegF (07/02/20 2:16 PM) Blood pressure sites Arm, left (07/02/20 2:16 PM) Social History Social History Type Response Smoking Status Former smoker, quit more than 30 days ago; Smokeless tobacco use: vaping; Type: Cigarettes; Previous treatment: None; Started at age: 17; Stopped at age: 18; entered on: 03/17/19 Sex
[2022-12-10 07:59] VITALS: BP 144/77; PULSE 78; RESP 16; TEMP 37; O2SAT 100
== END 2022-12-10 08:10 | disposition home or self-care (01) ==
PROVIDERS: Emergency Provider Emergency Medicine Emergency Medical Services
DX: S63.502A Unspecified sprain of left wrist, initial encounter (principal); X50.0XXA Overexertion from strenuous movement or load, initial encounter; X50.9XXA Other and unspecified overexertion or strenuous movements or postures, initial encounter; Y93.9 Activity, unspecified; Y92.9 Unspecified place or not applicable; Y99.9 Unspecified external cause status
CPT/HCPCS: 73100; 99283; 99284